=== PATIENT | female | born 1945 | race Caucasian/White ===

== ENCOUNTER 2024-07-15 07:46 | Emergency (ER) | payer OTHER, SELFPAY ==
[2024-07-15 07:49] VITALS: BP 147/71
[2024-07-15 08:07] VITALS: BMI 40.5
[2024-07-15 08:50] LABS: Glucose - Point of Care 139 mg/dl (70-99)
--- NOTE | 2024-07-15 09:12 | ED.GENMED ---
History of Present Illness
<Kourtney Quezada PA-C - Last Filed: 07/15/24 17:02>
General
Chief Complaint: Allergic Reaction
Source: patient
Exam Limitations: none
Time Seen by Provider: 07/15/24 08:10
Nursing documentation reviewed up to this point in time: agreed with
History of Present Illness
History of Present Illness:
79 y/o F with h/o COPD, NIDDM(no meds), sleep apnea, anxiety
here with feelings of facial swelling, gum swelling, hoarseness to her voice/throat feeling 'funny' since yesterday evening around 5:00.
Patient says 3 days ago she saw an ENT because she was having symptoms of congestion and cough that she thought were related to her asthma or COPD. She has been on Breo for years but he changed her to breztri
she used it on 07/13 in the morning and in the evening and while she was at dinner she started feeling that her gums were irritated and swollen. yesterday she said the symptoms were mild but present
today sh woke up feeling her face was swollen
pt says she really didn't sleep all night
she has not felt any signiicantly worse today but she was worried
she has never been told she had angioedema
pt is not on BP meds
no fever, chst pain, shortenss of breath
Past History
<Kourtney Quezada PA-C - Last Filed: 07/15/24 17:02>
Past History
ED Past Medical History: COPD and NIDDM
Social History
Tobacco: Non-smoker
Alcohol: None
Review of Systems
<Kourtney Quezada PA-C - Last Filed: 07/15/24 17:02>
Review of Systems
Allergies reviewed?: Yes
All Other Systems: Not applicable
Phy Exam
<Kourtney Quezada PA-C - Last Filed: 07/15/24 17:02>
Physical Exam
Physical Exam:
GENERAL: Alert , in no apparent distress
HEAD: NCAT
face: do not appreciate any facial swelling that is noticeable; pt points to her cheeks but it does not look swllen objectively
EYE: pupils equal and reactive, no nystagmus, no photophobia
NECK: Supple,full rom, nontender
ENT: o/p clr, mmm.
pharynx mildly injected; no vesicles
no thrush
mild hoarseness voice
able to swallow normally
no uvular edema
no gingival hypertrophy apprciated
CARDIAC: Regular rate and rhythm . no edema
LUNGS: Clear breath sounds bilaterally, no acute respiratory distress, no wheezes/rales/rhonchi
ABDOMEN: Soft, without focal tenderness, no r/g, no cvat
NEUROLOGICAL: Alert and orientedx 4, cn intact, no facial asymmetry, 5/5 strength in UE/LE, sensation intact, romberg neg, ambulates without assistance, neg pronator drift
SKIN: Warm and dry, skin intact.
MUSCULOSKELETAL: No edema, well perfused.
PSYCH: Normal and appropriate interaction.
Course
<Kourtney Quezada PA-C - Last Filed: 07/15/24 17:02>
Orders/Labs/Results
Orders:
Orders
07/15/24 08:41
Bedside Glucose- Treatment ONCE
07/15/24 08:48
Albuterol Nebs [Ventolin Nebules] 2.5 mg INH R NOW STA
Dexamethasone Sod Phosphate [Decadron] 10 mg IV NOW STA
Diphenhydramine [Benadryl] 25 mg IV NOW STA
07/15/24 08:49
CR Chest - 2 Views Urgent
Comment:
Reason For Exam: cough
07/15/24 11:16
Neck Soft Tissue [CR Soft Tissue Neck ] Urgent
Comment:
Reason For Exam: throat sensation
Abnormal Lab Results
07/15/24
08:47
POC Glucose 139 H mg/dl
(70-99)
Vital Signs
Initial and Last Documented VS:
Initial Vital Signs
Temp Pulse Resp BP Pulse Ox
36.8 C 81 16 147/71 98
07/15/24 07:49 07/15/24 07:49 07/15/24 07:49 07/15/24 07:49 07/15/24 07:49
Last Documented Vital Signs
Temp Pulse Resp BP Pulse Ox
36.8 C 81 16 153/58 98
07/15/24 07:49 07/15/24 07:49 07/15/24 07:49 07/15/24 11:02 07/15/24 11:15
<Fei Porras MD - Last Filed: 07/15/24 12:11>
Orders/Labs/Results
Orders:
Orders
07/15/24 08:41
Bedside Glucose- Treatment ONCE
07/15/24 08:48
Albuterol Nebs [Ventolin Nebules] 2.5 mg INH R NOW STA
Dexamethasone Sod Phosphate [Decadron] 10 mg IV NOW STA
Diphenhydramine [Benadryl] 25 mg IV NOW STA
07/15/24 08:49
CR Chest - 2 Views Urgent
Comment:
Reason For Exam: cough
07/15/24 11:16
Neck Soft Tissue [CR Soft Tissue Neck ] Urgent
Comment:
Reason For Exam: throat sensation
Abnormal Lab Results
07/15/24
08:47
POC Glucose 139 H mg/dl
(70-99)
Vital Signs
Initial and Last Documented VS:
Initial Vital Signs
Temp Pulse Resp BP Pulse Ox
36.8 C 81 16 147/71 98
07/15/24 07:49 07/15/24 07:49 07/15/24 07:49 07/15/24 07:49 07/15/24 07:49
Last Documented Vital Signs
Temp Pulse Resp BP Pulse Ox
36.8 C 81 16 153/58 98
07/15/24 07:49 07/15/24 07:49 07/15/24 07:49 07/15/24 11:02 07/15/24 11:15
<Kourtney Quezada PA-C - Last Filed: 07/15/24 17:02>
MDM/Problems Addressed
Differential Diagnosis Includes:
pharyngitis/URI, thrush, allergic reaction, less likely angioedema
MDM/Problems Addressed:
79 y/o F
used new inhaler2 days ago and developed symptoms of feeling gingival swelling/irritation, sore throat, scrachiness in her throat, slightly hoarse voice
and today thinks her face is swollen
no wheezing but has had cough x 3 weeks related to her COPD
no rash
no lip swelling/eye swelling
feels a bit nervous
pt appears well
on exam her pharynx is injected, no signs of thrush, but she does have some mild hoarseness ot her voice
tolerating secretions
aferile
lungs clear but pt feels like she needs treatment
given iv steroids and benadryl, cxr clear indep reviewed
feels better after meds
pt seen by ed attending
agrees with dipso pending XR soft tissue neck which was neg, indep reviewed
continue steorids for 4 days
benadryl
d/c the breztri
considered thrush but unlikely
<Kourtney Quezada PA-C - Last Filed: 07/15/24 17:02>
*Critical Care Note
Total Time (30-74mins, 75-104mins- exclusive of procedures): Not Applicable
ED Attending Note
<Kourtney Quezada PA-C - Last Filed: 07/15/24 17:02>
-
Portions of this chart may have been created with voice recognition software.� Occasional wrong word or��sound alike� substitutions may have occurred due to the inherent limitations of voice recognition software.
<Fei Porras MD - Last Filed: 07/15/24 12:11>
ED Attending Note
Patient seen and examined by attending physician: Yes
I performed the substantive portion of visit, reviewed & personally made and approve the management plan that is documented in note by myself or KATIE.: Yes
ED Attending Note:
79-year-old female started a new inhaler for her COPD 2 days ago. Last evening she developed some pain in her gums and feel like she had bilateral facial swelling. I difficulty drinking her coffee this morning. The symptoms have mostly improved.
She denies sore throat trouble breathing currently although does complain of some hoarseness.
On exam patient is nontoxic in no distress. She is not drooling she is not stridorous. She is slightly hoarse voice. No marbled speech. No trismus. She has some mild posterior soft palate and uvula erythema. No exudate. No asymmetrical
swelling. Lungs are clear and equal. Warm and dry. Perfusing well. Gums appear normal. No ulcerations. No abscess.
Impression mild posterior uvula soft palate erythema. Possibly viral. Feel its unlikely to be from the medication however chronologically there is a possible association. Will treat with steroids and follow-up.
Discharge Plan
Departure
Patient Disposition: Home (Routine Discharge)
Date of Disposition: 07/15/24
Time of Disposition: 12:06
Patient with high blood pressure during this ER visit?: Yes
Discharge Problem:
Allergic reaction
Instructions: Adverse Drug Reactions, Adult (DC)
Prescriptions:
New
prednisone 20 mg tablet
40 mg PO DAILY Qty: 8 0RF
epinephrine [EpiPen 2-Juan] 0.3 mg/0.3 mL auto-injector
0.3 ml IM ONCE PRN (Reason: anaphylaxis) Qty: 2 0RF
Referrals:
Jhony García MD [Family Provider, Internal Medicine] - Follow up in 2-3 days
Activity Restrictions/Additional Instructions:
STOP THE BREZTRI
RESTART YOUR BREO
TAKE PREDNISONE 40 mg ONCE A DAY FOR 4 DAYS STARTING TOMORROW
BENADRYL 50 MG EVERY 6 HOURS FOR 2 DAYS THEN ONLY NEEDED
RINSE YOUR MOUTH OUT WITH WARM SALT WATER AFTER EATING AND USING YOUR INHALER
RETURN FOR ANY CONCERNS: WORSE TROUBLE BREATHING/SWALLOWING, SHORTNESS OF BREATH, RASH, ETC
IF YOU SUDDENLY FEEL SIGNIFICANTLY WORSE (FACIAL SWELLING, THROAT SWELLING, TROUBLE SWALLOWING) THEN USE THE EPI PEN IN YOUR THIGH AND [id number].
Interventions
Interventions:
*Risk Screen - Suicide Last Done: 07/15/24 07:49
*General Assessment Last Done: 07/15/24 08:07
*Neglect/Abuse Screening Last Done: 07/15/24 07:49
*ED- Fall Risk Assessment Last Done: 07/15/24 08:07
*ED COVID-19 Vaccine History Last Done: 07/15/24 08:07
*Nursing Disposition Last Done: 07/15/24 13:28
ED- Cardiac Assessment Last Done: 07/15/24 08:14
ED- Pulmonary Assessment Last Done: 07/15/24 08:14
ED-Skin Assessment Last Done: 07/15/24 08:14
Discharge Date and Time
Discharge Date/Time: 07/15/24 13:28
Print Language: URDU
[2024-07-15] MEDS: DECADRON 10 MG IV (09:32)
[2024-07-15] MEDS: BENADRYL 25 MG IV (09:33)
[2024-07-15] MEDS: VENTOLIN NEBULES 2.5 MG INH (09:33)
[2024-07-15 09:36] VITALS: BP 137/49
[2024-07-15 10:00] VITALS: BP 148/59
[2024-07-15 11:02] VITALS: BP 153/58
== END 2024-07-15 13:28 | disposition home or self-care (01) ==
LOC: EMR 07:46
PROVIDERS: EMERGENCY PHYSICIAN Emergency Medicine; FAMILY PHYSICIAN Internal Medicine
DX: T78.40XA Allergy, unspecified, initial encounter (principal); Y92.9 Unspecified place or not applicable; J44.9 Chronic obstructive pulmonary disease, unspecified; E11.9 Type 2 diabetes mellitus without complications; G47.30 Sleep apnea, unspecified; F41.9 Anxiety disorder, unspecified
CPT/HCPCS: 99283; 94640; 96374; 96375; 70360; 71046; 82962

== ENCOUNTER 2024-11-19 07:45 | Inpatient (IN) | payer OTHER, SELFPAY ==
[2024-11-18 10:23] VITALS: BP 132/82
[2024-11-18 11:07] VITALS: BMI 37.1
[2024-11-18] MEDS: DELTASONE 50 MG PO (12:05)
[2024-11-18] MEDS: DUONEB 3 ML INH ×2 (12:05→19:45)
--- NOTE | 2024-11-18 12:16 | ED.GENMED ---
History of Present Illness
General
Chief Complaint: Cough
Source: patient
Time Seen by Provider: 11/18/24 11:46
History of Present Illness
History of Present Illness:
79-year-old female with past medical history of asthma/COPD and jyl-smsiwxw-[id number] diabetes presenting to the emergency department for evaluation of worsening cough and wheezing over the last 2 weeks which she believes is related to an upper
respiratory infection, primary care prescribed her prednisone on Tuesday which patient has been taking but without any relief of symptoms. She has an albuterol inhaler at home and has been using this sporadically but also without much relief. No
fevers, chills, rigors, no known sick contacts, recent travel and has not been on antibiotics. She denies being hospitalized anytime recently for asthma or COPD. Social history noncontributory.
Past History
Past History
ED Past Medical History: Asthma, COPD and NIDDM
ED Past Surgical History: None
Social History
Tobacco: Non-smoker
Alcohol: None
Drug: None
Personal:
Living: alone
Review of Systems
Review of Systems
All Other Systems: ROS reviewed and negative except as documented in HPI and ROS
Phy Exam
Physical Exam
Physical Exam:
GENERAL: Alert , in no apparent distress
HEAD: Normocephalic atraumatic
EYE: conjunctiva clear
NECK: Supple
ENT: o/p clr, mmm.
CARDIAC: Regular rate and rhythm
LUNGS: Diffuse inspiratory and expiratory wheezing, coughing throughout the exam, no rales/no ronchi
NEUROLOGICAL: Alert and oriented
SKIN: Warm and dry, skin intact.
MUSCULOSKELETAL: well perfused.
PSYCH: Normal and appropriate interaction.
Scores
Heart Failure Risk
Heart Failure Risk Score: Not Applicable
Heart Score for Chest Pain Patients
STEMI patient?: Not applicable
Withdrawal Assessment of Alcohol
Withdrawal Assessment Completed?: Not applicable
Course
Orders/Labs/Results
Orders:
Orders
11/18/24 10:27
Chest [CR Chest - 2 Views ] Urgent
Comment:
Reason For Exam: cough
11/18/24 12:00
Ipratropium/Albuterol Sulfate [Duoneb] 3 ml INH R NOW ONE
Prednisone [Deltasone] 50 mg PO NOW STA
11/18/24 13:56
Albuterol Sulfate [Ventolin Nebules] 10 mg INH R NOW STA
11/18/24 14:31
Complete Blood Count/With Diff Urgent
11/18/24 Dinner
Cholesterol Lowering
At Your Request: Full Participation
Does patient need a safe tray?: No
Cholesterol Lowering: Sodium, 2 Gram
1600 rae/13 CHO Diabetic
11/18/24 15:14
Azithromycin [Zithromax] 500 mg PO NOW STA
CefTRIAXone [Rocephin] 1,000 mg IV NOW STA
Magnesium Sulfate 2 Gram/50 ml [Magnesium Sulfate] 2 gram in 50 ml IV NOW
11/18/24 15:23
Basic Metabolic Panel Urgent
Magnesium Urgent
11/18/24 17:01
Admit/Transfer Patient As Directed
Co-Sign Provider:
Level of Care: Observation services
Assign to:: Medical/Surgical
Physician / Group: Dr Freeman
Diagnosis: Asthma exacerbation
PRN Pain Medication Management As Directed
May give lesser potent ordered pain med per pt: Yes
preference::
Protocol:: Medication orders for pain may be administered in a
manner that supports deferring to patient preference
when the pt is:
- Requesting an ordered lesser potent pain medication.
Least to most potent pain medications are defined
as: acetaminophen < NSAID < tramadol < opioids
(morphine, oxycodone, hydromorphone).
- Requesting a lesser dose of the same medication IF
ORDERED.
- Requesting a less intrusive route of administration
if both routes are prescribed by the provider (PO <
IV).
11/18/24 17:02
Code Status As Directed
Resuscitation Status: Full Code
11/18/24 17:05
Rx Pep / Acapela [RESP] Routine
11/18/24 17:11
Dextrose 50%-Water [Dextrose 50% Syringe] 12.5 grams IV [id number] PRN
Glucagon [GlucaGen] 1 mg IM PRN PRN
Bedside Glucose Monitoring As Directed
Frequency: AC&HS
Additional Instructions:: Change to q6h if pt on TPN, tube feeding or not eating
11/18/24 18:00
Dexamethasone Sod Phosphate [Decadron] 4 mg IV Q6H
Pantoprazole [Protonix] 40 mg PO QPM
Rosuvastatin Calcium [Crestor] 40 mg PO QPM
11/18/24 18:13
Bisacodyl [Dulcolax] 10 mg RECTAL [id number] PRN
Docusate W/Senna [Senokot-S] 1 tablet PO BIDPRN PRN
Enoxaparin Sodium [Lovenox] 40 mg SC QPM
Polyethylene Glycol Powder [Miralax] 17 grams PO DAILYPRN PRN
11/18/24 18:13
Activity As Directed
Activity Level: Out of Bed-Early Mobility
Vital Signs As Directed
Frequency: Per unit guidelines
DX Deep Vein Thrombosis Video Routine
11/18/24 18:44
COVID-19 Antigen Routine
Source: Nasal Swab
Influenza A+B Rapid Molecular Routine
NICK Source: Nasal Swab
Specimen Description:
11/18/24 19:13
RSV [Respiratory Syncytial Virus] Routine
NICK Source: Nasal Swab
Specimen Description:
Date Specimen was Collected: 11/18/24
Time Specimen was Collected: 19:05
11/18/24 20:00
Budesonide [Pulmicort] 0.25 mg INH R BID
Guaifenesin [Mucinex] 600 mg PO Q12
Ipratropium/Albuterol Sulfate [Duoneb] 3 ml INH R QID
11/18/24 21:45
Insulin Aspart Pen [Novolog Flexpen] 4 units SC NOW STA
11/18/24 22:00
Clonazepam [Klonopin] 0.5 mg PO HS
Escitalopram Oxalate [Lexapro] 20 mg PO HS
11/19/24 06:48
Consult Pulmonary [PULMONARY CONSULT] Routine
Consulting Provider: Yessi Lopez
Was physician already notified: Yes
Reason for consult: Asthma
11/19/24 07:30
Insulin Aspart Corrective Low [Novolog Flexpen-Low Resistance] See Protocol SC AC
11/19/24 08:20
Basic Metabolic Panel IN AM
Complete Blood Count/With Diff IN AM
Glycohemoglobin (HgbA1c) IN AM
Abnormal Lab Results
11/18/24 11/18/24 11/18/24
14:31 15:23 21:03
WBC 17.5 H 10^3/uL
(4.8-10.8)
Hgb 11.8 L g/dL
(12.0-16.0)
MCV 77.7 L fL
(81.0-99.0)
MCH 23.7 L pg
(27.0-31.0)
MCHC 30.6 L g/dL
(33.0-37.0)
RDW 16.9 H %
(11.5-14.5)
MPV 10.8 H fL
(7.4-10.4)
Abs Immat Gran (auto) 0.1 H 10^3/uL
(0-0.05)
Absolute Neuts (auto) 14.4 H 10^3/uL
(1.4-6.5)
Immature Gran % 0.6 H %
(0-0.5)
Neutrophils % 82.2 H %
(42.2-75.2)
Lymphocytes % 13.0 L %
(20.5-51.1)
Sodium 134 L mmol/L
(135-145)
BUN 21 H mg/dl
(7-17)
Glucose 178 H mg/dl
(70-99)
POC Glucose 317 H mg/dl
(70-99)
11/19/24
00:52
WBC
Hgb
MCV
MCH
MCHC
RDW
MPV
Abs Immat Gran (auto)
Absolute Neuts (auto)
Immature Gran %
Neutrophils %
Lymphocytes %
Sodium
BUN
Glucose
POC Glucose 225 H mg/dl
(70-99)
11/18/24 14:31
11/18/24 15:23
Vital Signs
Initial and Last Documented VS:
Initial Vital Signs
Temp Pulse Resp BP Pulse Ox
98.4 F 81 18 132/82 95
11/18/24 10:23 11/18/24 10:23 11/18/24 10:23 11/18/24 10:23 11/18/24 10:23
Last Documented Vital Signs
Temp Pulse Resp BP Pulse Ox
97.9 F 72 14 175/78 97
11/20/24 07:00 11/20/24 11:06 11/20/24 11:06 11/20/24 08:48 11/20/24 11:06
MDM/Problems Addressed
Differential Diagnosis Includes:
Asthma/COPD exacerbation
COVID
Flu
Pneumonia
Bronchitis
PE
MDM/Problems Addressed:
79-year-old female presenting to the ER for evaluation of left shoulder cough that has been ongoing for 2 weeks, worsening wheezing and difficulty breathing over the last week. Primary care provider prescribed prednisone which patient has been
using without any relief. No fever/chills or rigors. Exam here reveals significant inspiratory and expiratory wheezing. Will treat with DuoNeb and prednisone here, chest x-ray ordered. Disposition pending.
Chronic conditions affecting care: COPD and Asthma
Acute Exacerbation and/or Progression of Chronic Illness: COPD and Asthma
*Radiology
Radiology exam reviewed: preliminary read by ED provider (normal CXR)
*Pulse Oximetry
SaO2: 95
Oxygen Mode of Delivery: Room air
Patient hypoxic: no
*Critical Care Note
Total Time (30-74mins, 75-104mins- exclusive of procedures): Not Applicable
Patient Management
Discussion with other providers: Hospitalist
Escalation/DeEscalation of care consider admission/obs:
Despite duoneb and hour long nebulizer treatment in addition to steroids, patient continues with cough and wheezing on exam. Her O2 remains WNL. CXR shows no obvious pneumonia but will cover for CAP/atypical pneumonia with Rocephin/Zithromax.
Hospitalist team notified and accepts for continued evaluation and treatment
ED Attending Note
-
Portions of this chart may have been created with voice recognition software.� Occasional wrong word or��sound alike� substitutions may have occurred due to the inherent limitations of voice recognition software.
Discharge Plan
Departure
Patient Disposition: Admit
Date of Disposition: 11/18/24
Time of Disposition: 15:21
Presentation/result/management discussed w/ accepting MD/DO: Hospitalist
Discharge Problem:
Asthma with acute exacerbation, Bronchitis
Interventions
Interventions:
*Risk Screen - Suicide Last Done: 11/18/24 10:23
*General Assessment Last Done: 11/18/24 10:23
*Neglect/Abuse Screening Last Done: 11/18/24 11:08
*ED- Fall Risk Assessment Last Done: 11/18/24 11:05
*ED COVID-19 Vaccine History Last Done: 11/18/24 11:05
*ED Influenza Vaccine History Last Done: 11/18/24 11:05
*Nursing Disposition Last Done: 11/18/24 18:17
ED- Pulmonary Assessment Last Done: 11/18/24 11:05
Discharge Date and Time
Discharge Date/Time: 11/18/24 18:18
[2024-11-18 13:33] VITALS: BP 153/45
[2024-11-18] MEDS: VENTOLIN NEBULES 10 MG INH (14:36)
[2024-11-18 14:40] LABS: Hematocrit 38.6 % (37.0-47.0); Hemoglobin 11.8 g/dL (12.0-16.0); Mean Corp Hgb Conc. 30.6 g/dL (33.0-37.0); Mean Corpuscular Volume 77.7 fL (81.0-99.0); Nucleated Red Blood Cells % 0 %; Platelet Count 309 10^3/uL (130-400); Red Cell Dist. Width 16.9 % (11.5-14.5)
[2024-11-18] MEDS: MAGNESIUM SULFATE 50 IV (15:23)
[2024-11-18] MEDS: ZITHROMAX 500 MG PO (15:24)
[2024-11-18] MEDS: ROCEPHIN 1000 MG IV (15:24)
[2024-11-18 16:07] LABS: Blood Urea Nitrogen 21 mg/dl (7-17); Calcium 8.7 mg/dl (8.4-10.2); Carbon Dioxide 25 mmol/L (22-30); Chloride 103 mmol/L (98-107); Estimated Creatinine Clearance 74 ml/min; Glucose 178 mg/dl (70-99); Magnesium 1.9 mg/dl (1.6-2.3); Potassium 4.2 mmol/L (3.5-5.1); Sodium 134 mmol/L (135-145); eGFR > 60.00
--- NOTE | 2024-11-18 17:06 | HPS.HSE ---
Family Physician
-
Family Physician: Jhony García
Chief Complaint
-
Cough
History of Present Illness
Patient 79 years old female with history of asthma, hyperlipidemia, depression and anxiety, GERD, obesity, came into the hospital with worsening cough and wheezing. Patient tells me that she has been having URI symptoms for about 2 weeks described
as runny nose, dry cough, postnasal drip, and wheezing. She denies fevers or chills. She saw her primary care who prescribed a course of steroids and antibiotics and she has some nebulizer with levalbuterol at home that she has been using over the
last 2 days without significant improvement. She has some shortness of breath and chest discomfort related to the cough. No leg pain or leg swelling. In terms of sick contact, patient's daughter and granddaughter has a viral URI going on over the
last several weeks as well. In the ED, pulse ox 95% on room air, she was given oral steroid, breathing treatment, IV magnesium, and antibiotics of IV Rocephin and azithromycin and she has persistent wheezing she was referred to hospital service for
further evaluation.
Medical History
Past Medical History
Past Medical History: Reports Other (Asthma, hyperlipidemia, depression and anxiety, GERD, obesity)
Past Surgical History: Reports None
Social History
Tobacco: Non-smoker
Alcohol: None
Drug: None
Family History
Family History: Not pertinent
Allergies / Home Medications
Allergies reflects when Allergies were last updated in [employer].
Home Medications with original date entered in [employer]
Allergy/Medication List:
Allergies
Allergy/AdvReac Type Severity Reaction Status Date / Time
Penicillins Allergy Unknown Unknown Verified 11/18/24 10:24
Sulfa (Sulfonamide Allergy Unknown Unknown Verified 11/18/24 10:24
Antibiotics)
Home Medications
clonazepam 0.5 mg tablet 0.5 mg PO HS 11/18/24
escitalopram oxalate 20 mg tablet (Lexapro) 20 mg PO HS 11/18/24
fluticasone fur. 100 mcg-umeclid 62.5 mcg-vilant 25 mcg inhalat.powder (Trelegy Ellipta) 1 inh inhalation R QPM 11/18/24
levalbuterol HCl 0.63 mg/3 mL solution for nebulization 0.63 mg inhalation R Q8HPRN PRN sob 11/18/24
omeprazole 40 mg capsule,delayed release 40 mg PO QPM 11/18/24
prednisone 5 mg tablet 5 mg PO DIRECTED 11/18/24
rosuvastatin 40 mg tablet (Crestor) 40 mg PO HS 11/18/24
Review of Systems
-
A 12 point ROS was completed and negative except as noted: Yes
Physical Exam
Vital Signs
Vital Signs
Temp Pulse Resp BP Pulse Ox
98.4 F 95 39 153/45 95
11/18/24 10:23 11/18/24 16:15 11/18/24 16:15 11/18/24 13:33 11/18/24 16:15
Physical exam:
General: Acutely ill
HEENT: Normocephalic, Atraumatic and Moist Mucous Membranes
Respiratory: Bilateral wheezes throughout both rodriguez, no crackles or rhonchi.
Cardiac: Regular Rhythm and S1/S2
GI: Soft, Nontender and Nondistended
Musculoskeletal: No Clubbing, No Cyanosis and No Edema
Neuro: Awake, Alert and Oriented, no neurological deficits
Psych: Calm
Physical Exam
General: Other
Laboratory Results
-
11/18/24 14:31
11/18/24 15:23
Data Reviewed
-
Diagnostic Radiology: Image Personally Visualized and interpreted
Lab Data: Labs Reviewed by me
Impression/Plan
-
IMPRESSION:
Patient 79 years old female who came into the hospital with persistent URI and asthma exacerbation. She will need to be observed in the hospital and treated accordingly.
PLAN:
Acute asthma exacerbation:
Likely exacerbated by viral URI
Check influenza COVID-19, and RSV.
Start IV steroids, dexamethasone 4 mg every 6 hours
DuoNebs 4 times daily
Acapella
Mucinex 600 mg twice a day
Pulmicort inhalers twice a day
Seen chest x-ray and no signs of pneumonia
Monitor respiratory status closely
Leukocytosis:
Likely related to steroid use
No signs of infection
Given antibiotics in the ED but will not continue since no evidence of bacterial infection
Seen chest x-ray and no signs of pneumonia
Hyperglycemia:
Likely related to steroids-she denies history of diabetes mellitus.
Will keep on insulin sliding scale for now since she will benefit regardless of diabetes or not (latest blood sugar 178) and will check hemoglobin A1c in a.m.
Hyperlipidemia:
Continue rosuvastatin 40 mg p.o. every night
GERD:
Continue PPI
Depression anxiety:
Continue Lexapro 30 mg every night
Continue clonazepam 0.5 mg every night
Anemia with microcytic index:
Mild and no signs of bleeding
Continue to monitor
Hyponatremia:
Mild
Trend in a.m.
DVT prophylaxis:
Lovenox SQ
CODE STATUS:
Full code
Time spent 75 minutes
[2024-11-18] MEDS: LOVENOX 40 MG SC (18:33)
[2024-11-18] MEDS: PROTONIX 40 MG PO (18:33)
[2024-11-18] MEDS: DECADRON 4 MG IV ×2 (18:33→23:07)
[2024-11-18] MEDS: CRESTOR 40 MG PO (18:35)
[2024-11-18 19:21] LABS: COVID-19 Antigen Negative (Negative)
[2024-11-18] MEDS: PULMICORT 0.25 MG INH (19:45)
--- NOTE | 2024-11-18 20:11 | PTCARENOTE ---
Patient received in bed upon changed of shift. No signs of distress or discomfort. RSV, COVID, and Flu swabs all negative. Oriented to unit. Call sharp within reach.
[2024-11-18] MEDS: MUCINEX 600 MG PO (20:57)
[2024-11-18] MEDS: KLONOPIN 0.5 MG PO (21:00)
[2024-11-18] MEDS: LEXAPRO 20 MG PO (21:00)
[2024-11-18 21:05] LABS: Glucose - Point of Care 317 mg/dl (70-99)
[2024-11-18] MEDS: NOVOLOG FLEXPEN 4 UNITS SC (22:25)
[2024-11-18 22:51] VITALS: BP 180/69
[2024-11-18 23:04] VITALS: BP 132/60
[2024-11-19 00:53] LABS: Glucose - Point of Care 225 mg/dl (70-99)
[2024-11-19] MEDS: DECADRON 4 MG IV ×4 (05:00→23:25)
[2024-11-19 07:00] VITALS: BP 144/77
[2024-11-19] MEDS: MUCINEX 600 MG PO ×2 (07:30→21:51)
[2024-11-19] MEDS: PULMICORT 0.25 MG INH ×2 (07:36→19:26)
[2024-11-19] MEDS: DUONEB 3 ML INH ×4 (07:36→19:26)
[2024-11-19 08:04] LABS: Glucose - Point of Care 191 mg/dl (70-99)
[2024-11-19 08:50] LABS: Hematocrit 38.3 % (37.0-47.0); Hemoglobin 12.2 g/dL (12.0-16.0); Mean Corp Hgb Conc. 31.9 g/dL (33.0-37.0); Mean Corpuscular Volume 75.0 fL (81.0-99.0); Nucleated Red Blood Cells % 0 %; Platelet Count 345 10^3/uL (130-400); Red Cell Dist. Width 16.8 % (11.5-14.5)
[2024-11-19] MEDS: NOVOLOG FLEXPEN-LOW RESISTANCE 1 UNITS SC (09:07)
[2024-11-19 09:31] LABS: Blood Urea Nitrogen 22 mg/dl (7-17); Calcium 9.0 mg/dl (8.4-10.2); Carbon Dioxide 24 mmol/L (22-30); Chloride 103 mmol/L (98-107); Estimated Creatinine Clearance 74 ml/min; Glucose 196 mg/dl (70-99); Potassium 4.9 mmol/L (3.5-5.1); Sodium 134 mmol/L (135-145); eGFR > 60.00
[2024-11-19 09:36] LABS: Glycohemoglobin (HgbA1c) 7.8 % (4.0-5.6)
--- NOTE | 2024-11-19 09:51 | CON.PUL ---
Consultation
Consultation Request
Date/Time Consultation Requested: 11/19/2024-8 AM
Date/Time Consultation Performed: 11/19/2024-8:30 AM
Requesting Provider: Hospitalist
Performing Provider: Dr. Dennis
Reason for Consultation: Shortness of breath/wheezing
Medical History
-
Chief Complaint: Shortness of breath
History of Present Illness:
79-year-old non-smoking female with a history of hypertension, hyperlipidemia, depression, anxiety, GERD, obesity as well as asthma who presented with wheezing and cough noted to have asthma exacerbation-pulmonary consulted for asthma exacerbation
11/19/2024. Patient states that she has had progressive shortness of breath, chest tightness, wheezing, productive cough, chest congestion, mucus, but denied any chest pain, pleurisy, abdominal pain, nausea, focal weakness or leg swelling.
Past Medical History
Past Medical History: None (Asthma. Hyperlipidemia. Depression. Anxiety. GERD. Obesity.)
Social History
Tobacco: Non-smoker
Alcohol: None
Drug: None
Occupational Exposures: No known asbestos exposure
Environmental Exposures: No known tuberculosis exposure
Family History
Family History: Reviewed & Not Pertinent
Allergies / Home Medications
Allergies
Allergy/AdvReac Type Severity Reaction Status Date / Time
Penicillins Allergy Unknown Unknown Verified 11/18/24 10:24
Sulfa (Sulfonamide Allergy Unknown Unknown Verified 11/18/24 10:24
Antibiotics)
Home Medications
�Medication �Instructions �Recorded �Confirmed �Last Taken �Type
clonazepam 0.5 mg tablet 0.5 mg PO HS Mental Health/Anxiety 11/18/24 11/18/24 11/17/24 History
escitalopram oxalate 20 mg tablet 20 mg PO HS Depression 11/18/24 11/18/24 11/17/24 History
(Lexapro)
fluticasone fur. 100 mcg-umeclid 1 inh inhalation R QPM 11/18/24 11/18/24 11/17/24 History
62.5 mcg-vilant 25 mcg Lung/Breathing Issues
inhalat.powder (Trelegy Ellipta)
levalbuterol HCl 0.63 mg/3 mL 0.63 mg inhalation R Q8HPRN PRN sob 11/18/24 11/18/24 Unknown History
solution for nebulization
omeprazole 40 mg capsule,delayed 40 mg PO QPM Gastrointestinal Issue 11/18/24 11/18/24 11/17/24 History
release
prednisone 5 mg tablet 5 mg PO DIRECTED 11/18/24 11/18/24 11/17/24 History
Anti-Inflammatory
rosuvastatin 40 mg tablet (Crestor) 40 mg PO HS High Cholesterol 11/18/24 11/18/24 11/17/24 History
Review of Systems
-
Unable to Obtain full review of systems at this time due to: Other ( per HPI)
Vitals / Labs / Diagnostic Testing
Vital Signs
Temp Pulse Resp BP Pulse Ox
98.0 F 90 18 144/77 97
11/19/24 07:00 11/19/24 07:41 11/19/24 07:41 11/19/24 07:00 11/19/24 07:41
Lab Data
11/19/24 08:20
11/19/24 08:20
Microbiology
11/18/24 19:13 Nasal Swab Respiratory Syncytial Virus Ag - Final
Negative for Respiratory Syncytial Virus.
A false negative result may be obtained with a specimen
collected early in the acute phase. If symptoms persist, a
new specimen should be tested.
11/18/24 18:44 Nasal Swab Influenza Types A & B (ZIGGY) - Final
Negative for Influenza A & B, NAAT
Negative results must be combined with clinical observations
and patient history.
Nucleic Acid Amplification test (NAAT)performed on the
[employer] platform.
Diagnostic Testing:
Physical Exam
-
Exam:
well-nourished and well-developed in no apparent distress
HEENT-atraumatic, normocephalic
Neck-supple, no JVD, no bruit
Heart-regular rate and rhythm-no murmurs, rubs or gallops
Chest with diminished breath sounds, prolonged expiratory time, tight wheezing on expiration, no crackles
Back without tenderness
Abdomen-soft, nontender, nondistended, no hepatosplenomegaly
Extremities-no cyanosis, clubbing, edema and good peripheral pulses
Integument-intact, no rashes, lesions or ecchymosis
Neurology-alert and oriented, nonfocal motor and sensory exam
Assessment
-
79-year-old non-smoking female with a history of hypertension, hyperlipidemia, depression, anxiety, GERD, obesity as well as asthma who presented with wheezing and cough unresponsive to outpatient prednisone and Xopenex noted to have asthma
exacerbation-pulmonary consulted for asthma exacerbation 11/19/2024
Asthma-moderate persistent with acute exacerbation
Leukocytosis
Hyperglycemia-elevated A1c 7.8%
Leukocytosis
Mild hyponatremia
Conditions present prior to admission:
Asthma.
Hyperlipidemia.
Depression.
Anxiety.
GERD.
Obesity.
Plan
Respiratory decompensation due to underlying asthma with acute exacerbation
Supplemental oxygen if needed
Incentive spirometry
DuoNebs and Pulmicort
Decadron 4 mg IV every 6 hours
Mucolytic's
Antitussives if needed
Sputum culture if able to produce
Observe off antibiotics
Monitor leukocytosis
Consider procalcitonin if considering antibiotics
Follow blood sugar
Insulin supplementation as needed-note A1c elevation
DVT prophylaxis-on Lovenox
GI prophylaxis-on pantoprazole
Nutrition
Early mobilization
Outpatient pulmonary follow-up
Diagnostic data:
Chest x-ray 07/15/2024-NAD
Chest x-ray 11/18/2024-NAD
X-ray neck 07/15/2024-soft tissue of the neck appear intact without significant focal abnormalities
Data Reviewed
-
EKG: Report reviewed by me
Radiology: Report reviewed by me
Medical Tests (Nuc Med, Echo etc): Report reviewed by me
Labs: Labs reviewed by me
Old Records: Reviewed
Total Time Spent with Patient (in minutes): 55
--- NOTE | 2024-11-19 09:56 | W.PN.HOSP.TC ---
Today's Communication/Plan
-
f/w pulmonary recommendations
Assessment / Plan
Assessment / Plan
Physical exam:
General: Acutely ill
HEENT: Normocephalic, Atraumatic and Moist Mucous Membranes
Respiratory: Bilateral wheezes throughout both rodriguez, no crackles or rhonchi.
Cardiac: Regular Rhythm and S1/S2
GI: Soft, Nontender and Nondistended
Musculoskeletal: No Clubbing, No Cyanosis and No Edema
Neuro: Awake, Alert and Oriented, no neurological deficits
Psych: Calm
Patient 79 years old female who came into the hospital with persistent URI and asthma exacerbation. She will need to be observed in the hospital and treated accordingly.
PLAN:
Acute asthma exacerbation:
Likely exacerbated by viral URI
Negative influenza COVID-19, and RSV.
Continue with steroid therapy
No history of smoking, brief history when she was 20s
Acapella
Mucinex 600 mg twice a day
Pulmicort inhalers twice a day
Seen chest x-ray and no signs of pneumonia
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 She has scheduled to see pulmonary in [place]
In December 2024 consult pulmonary. She wanted to see our pulmonary, consulted
OMER
Not using C pap
Hyperglycemia:
Hemoglobin A1c 7.8.
BMI is 37, obesity
Counseled for healthy lifestyle, weight loss follow-up with her primary care doctor.
Hyperlipidemia:
Continue rosuvastatin 40 mg p.o. every night
GERD:
Continue PPI
Depression anxiety:
Continue Lexapro 30 mg every night
Continue clonazepam 0.5 mg every night
Anemia with microcytic index:
Mild and no signs of bleeding
Continue to monitor
Hyponatremia:
Mild
No confusion
DVT prophylaxis:
Lovenox SQ
CODE STATUS:
Full code
Total time spent to see the patient, examine the patient, review data and lab results, discuss treatment plan with patient, nursing staff around 55 minutes
Anticipated Discharge: 24 - 48 hours
Subjective/Interval History
-
Date of Service: November 19, 2024
Still cough
No sob
Objective Data
-
Labs:
Laboratory Results
11/19/24
08:20
WBC 19.7 H
Hgb 12.2
Hct 38.3
Plt Count 345
Sodium 134 L
Potassium 4.9
Chloride 103
Carbon Dioxide 24
BUN 22 H
Creatinine 0.6
Glucose 196 H
Calcium 9.0
Vital Signs:
Vital Signs
Temp Pulse Resp BP Pulse Ox
98.0 F 90 18 144/77 97
11/19/24 07:00 11/19/24 07:41 11/19/24 07:41 11/19/24 07:00 11/19/24 07:41
I&O
11/18/24 11/19/24 11/20/24
06:59 06:59 06:59
Intake Total 480 / 480
Balance 480 / 480
--- NOTE | 2024-11-19 11:01 | CM ---
Patient seen bedside, initial assessment completed. Patient 79 years old female with history of asthma, hyperlipidemia, depression and anxiety, GERD, obesity, came into the hospital with worsening cough and wheezing.
Patient resides w/ her daughter in a 2STH, 5 bedrooms. 2 or 3 steps to enter the home. Patient is independent w/ ambulation, no device required. Independent w/ ADLs and personal care. Denies SNF/HC hx. Patient has neb machine, no other DME reported.
Address, point of contact and insurance verified
PCP: Jhony García
Pharmacy: [facility]
Patient's daughter will transport at d/c
Plan: Home, no needs anticipated
[2024-11-19 12:13] LABS: Glucose - Point of Care 229 mg/dl (70-99)
[2024-11-19] MEDS: NOVOLOG FLEXPEN-LOW RESISTANCE 2 UNITS SC ×2 (12:14→17:16)
[2024-11-19 15:22] VITALS: BP 146/57
[2024-11-19 17:06] LABS: Glucose - Point of Care 226 mg/dl (70-99)
[2024-11-19] MEDS: NOVOLOG FLEXPEN 7 UNITS SC (17:16)
[2024-11-19] MEDS: CRESTOR 40 MG PO (17:24)
[2024-11-19] MEDS: LOVENOX 40 MG SC (17:24)
[2024-11-19] MEDS: PROTONIX 40 MG PO (17:24)
[2024-11-19 21:30] LABS: Glucose - Point of Care 183 mg/dl (70-99)
[2024-11-19] MEDS: KLONOPIN 0.5 MG PO (21:53)
[2024-11-19] MEDS: LANTUS 0.15 UNITS SC (21:53)
[2024-11-19] MEDS: LEXAPRO 20 MG PO (21:55)
[2024-11-19 23:17] VITALS: BP 162/72
[2024-11-20] MEDS: DECADRON 4 MG IV (06:22)
[2024-11-20 07:00] VITALS: BP 175/78
[2024-11-20] MEDS: DUONEB 3 ML INH ×4 (07:15→19:41)
[2024-11-20] MEDS: PULMICORT 0.25 MG INH ×2 (07:16→19:41)
[2024-11-20] MEDS: MUCINEX 600 MG PO ×2 (08:00→20:49)
[2024-11-20 08:15] LABS: Glucose - Point of Care 157 mg/dl (70-99)
[2024-11-20] MEDS: NORVASC 5 MG PO (08:48)
[2024-11-20] MEDS: NOVOLOG FLEXPEN 7 UNITS SC ×3 (09:02→17:27)
[2024-11-20] MEDS: NOVOLOG FLEXPEN-LOW RESISTANCE 1 UNITS SC ×2 (09:02→17:26)
[2024-11-20] MEDS: DELTASONE 40 MG PO (09:03)
--- NOTE | 2024-11-20 09:27 | PN.DE.MGMTRT ---
Insulin Management
- -
11/20/2024: Diabetes Management Consult
79 year old female with PMH: Asthma, HLD, HTN, Depression Anxiety, GERD, Obesity, came into the hospital with worsening cough and wheezing, associated with 2 weeks h/o URI symptoms described as runny nose, dry cough and postnasal drip. She saw her
primary care who prescribed a course of steroids and antibiotics without significant improvement. In the ED, she was continued on IV steroid, contributing to Hyperglycemia.
Pt awake, alert, oriented, resting in bed, offers no complaints, able to discuss diabetes care plan.
States she is on chronic steroids (Pred 5mg daily) and has been on and off high dose steroids since the summer.
She was not aware of diabetes dx and is not on any diabetes oral medications. A1C 7.8%, Cr 0.6, eGFR >60
Pt has been on IV steroids- Dexa 4 mg IV Q6 hrs, dose has been tapered down to oral pred 40mg daily
Patient was initiated on basal bolus insulin; 11/19 pre-dinner glucose was 229, received NovoLog 7 units. HS glucose was 183, received Lantus 15 units, FBG 157 POC this AM. Will make no changes to current regimen. Cont Lantus 15 units @ HS and
NovoLog 7 units AC, and low corrective with meals
Will adjust diet to 1600 rae low cholesterol. Discussed with Nurse. Will cont to follow
Pt will be seen bu the Diabetes Nurse Educator for glucose meter and insulin administration instructions.
Diabetes History
- -
Type of Diabetes: 2 requiring insulin
Pre-Admission Diabetes Regimen
11/19/24
08:20
Creatinine 0.6
Lab Results
Hemoglobin A1c 7.8 % (4.0-5.6) H 11/19/24 08:20
Insulin Pump Settings
IP Diabetes Regimen
11/19/24 11/19/24 11/19/24
08:20 12:12 17:04
Glucose 196 H
POC Glucose 229 H 226 H
11/19/24 11/20/24
21:28 08:14
Glucose
POC Glucose 183 H 157 H
Meal type: Lunch
Amount consumed: 100%
Patient Education
--- NOTE | 2024-11-20 09:49 | W.PN.PUL.V3 ---
Today's Communication / Plan
-
Change Decadron to oral prednisone.
Continue nebulizers and mucolytics.
Increase activity.
Wean oxygen
Assessment
-
79-year-old non-smoking female with a history of hypertension, hyperlipidemia, depression, anxiety, GERD, obesity as well as asthma who presented with wheezing and cough unresponsive to outpatient prednisone and Xopenex noted to have asthma
exacerbation-pulmonary consulted for asthma exacerbation 11/19/2024
Asthma-moderate persistent with acute exacerbation
Leukocytosis
Hyperglycemia-elevated A1c 7.8%
Leukocytosis
Mild hyponatremia
Conditions present prior to admission:
Asthma.
Hyperlipidemia.
Depression.
Anxiety.
GERD.
Obesity.
Plan
Respiratory decompensation due to underlying asthma with acute exacerbation
Supplemental oxygen if needed-attempt to wean
Incentive spirometry
DuoNebs and Pulmicort
Decadron 4 mg IV every 6 hours-Changed to prednisone with slow taper
Mucolytic's
Antitussives if needed
Sputum culture if able to produce
Observe off antibiotics
Monitor leukocytosis
Consider procalcitonin if considering antibiotics
Follow blood sugar
Insulin supplementation as needed-note A1c elevation
DVT prophylaxis-on Lovenox
GI prophylaxis-on pantoprazole
Nutrition
Early mobilization
Outpatient pulmonary follow-up
Diagnostic data:
Chest x-ray 07/15/2024-NAD
Chest x-ray 11/18/2024-NAD
X-ray neck 07/15/2024-soft tissue of the neck appear intact without significant focal abnormalities
6 minute walk test-09/20/24: She stopped the walk test aftter almost 3 minutes Because of fatigue. Her resting saturation was 100% and declined to 98%. Her maximum heart rate was 102 bpm with exercise and 80 bpm at rest. Her perceived dyspnea was
moderate at 3 on a 10 point dyspnea scale. She ambulated 350 feet.
Echocardiogram-07/2021: He has 60-65%.� Moderate diastolic dysfunction.� Features were consistent with a pseudo-normal LV filling pattern with concomitant abnormal relaxation and increased filling pressure.Moderate mitral regurgitation and mild to
moderate aortic insufficiency. Normal RV size and systolic function.� Estimated RV systolic pressure 29 mmHg.
Nuclear stress test-09/01/22: Stress ejection fraction 73%.� LV systolic function post stress test was normal.� Resting ejection fraction was 84%.� Fixed perfusion defect which was small with mild reduction in uptake present in the apical location
that was predominantly fixed..� No signs of ischemia.
Subjective Data
-
Date of Service:
Date of Service: November 20, 2024
Chief Complaint: Pulmonary Follow Up and Dyspnea Follow Up
Subjective:
Feels better, less short of breath, still has wheezing, dyspnea on exertion, nonproductive cough but no chest pain
Review of Systems
General: Other ( per HPI)
Objective Data
Data Reviewed
Vital Signs / I&O:
Vital Signs
Temp Pulse Resp BP Pulse Ox
97.9 F 75 18 175/78 96
11/20/24 07:00 11/20/24 08:48 11/20/24 07:21 11/20/24 08:48 11/20/24 07:21
Intake and Output
11/19/24 11/20/24 11/21/24
06:59 06:59 06:59
Intake Total 480 / 480 960 / 960
Balance 480 / 480 960 / 960
SaO2: 96
Physical Exam
General: Respiratory Distress (n) and Comfortable
HEENT: Normocephalic and Moist Mucous Membranes
Cardiovascular: Regular Rhythm
Respiratory: Wheeze ( expiratory), Rhonchi ( expiratory), Non-Labored Respirations, Accessory Resp Muscle Use (n) and Stridor (n)
GI: Soft, Non Distended and Non Tender
Neurology: Awake and No Motor Deficits
Skin: Warm, Good Color, Cyanosis (n), Jaundice (n) and Rash (n)
Labs/Micro/Reports
Lab Data
11/19/24 08:20
11/19/24 08:20
Microbiology
11/18/24 19:13 Nasal Swab Respiratory Syncytial Virus Ag - Final
Negative for Respiratory Syncytial Virus.
A false negative result may be obtained with a specimen
collected early in the acute phase. If symptoms persist, a
new specimen should be tested.
11/18/24 18:44 Nasal Swab Influenza Types A & B (ZIGGY) - Final
Negative for Influenza A & B, NAAT
Negative results must be combined with clinical observations
and patient history.
Nucleic Acid Amplification test (NAAT)performed on the
[employer] platform.
--- NOTE | 2024-11-20 09:56 | W.PN.HOSP.TC ---
Today's Communication/Plan
-
Diabetic nurse practitioner consult. Continue with current insulin
Changed to oral prednisone
Start low-dose amlodipine
Assessment / Plan
Assessment / Plan
Physical exam:
General: Acutely ill
HEENT: Normocephalic, Atraumatic and Moist Mucous Membranes
Respiratory: Bilateral wheezes throughout both rodriguez but less intense, no crackles or rhonchi.
Cardiac: Regular Rhythm and S1/S2
GI: Soft, Nontender and Nondistended
Musculoskeletal: No Clubbing, No Cyanosis and No Edema
Neuro: Awake, Alert and Oriented, no neurological deficits
Psych: Calm
Patient 79 years old female who came into the hospital with persistent URI and asthma exacerbation. She will need to be observed in the hospital and treated accordingly.
PLAN:
Acute asthma exacerbation:
Likely exacerbated by viral URI
Negative influenza COVID-19, and RSV.
Continue with steroid therapy, change to oral prednisone then taper slowly.
No history of smoking, brief history when she was 20s
Acapella
Mucinex 600 mg twice a day
Pulmicort inhalers twice a day
Seen chest x-ray and no signs of pneumonia
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 She has scheduled to see pulmonary in [place]
In December 2024 consult pulmonary. She wanted to see our pulmonary, consulted
OMER
Not using C pap
# Elevated blood pressure, suspect primary hypertension, untreated/undiagnosed
No chest pain shortness of breath. Will get baseline EKG.
Start the patient on low-dose amlodipine. Discussed with patient and her daughter
Patient was counseled to get blood pressure machine at home, document her readings and share them with the primary care doctor
Hyperglycemia:
Hemoglobin A1c 7.8. c/w undiagnosed or untreated DM. Pt reported that she was never told to check her blood sugar and does not have glucometer at home.
BMI is 37, obesity
Started on long acting Premeal insulin. Expect hyperglycemia induced by steroid
Counseled for healthy lifestyle, weight loss follow-up with her primary care doctor.
Consulted diabetic nurse practitioner
Hyperlipidemia:
Continue rosuvastatin 40 mg p.o. every night
GERD:
Continue PPI
Depression anxiety:
Continue Lexapro 30 mg every night
Continue clonazepam 0.5 mg every night
Anemia with microcytic index:
Mild and no signs of bleeding
Continue to monitor
Hyponatremia:
Mild
No confusion
DVT prophylaxis:
Lovenox SQ
CODE STATUS:
Full code
Total time spent to see the patient, examine the patient, review data and lab results, discuss treatment plan with patient, nursing staff around 55 minutes
Anticipated Discharge: 24 - 48 hours
Subjective/Interval History
-
Date of Service: November 20, 2024
No chest pain
No sob, less cough
Objective Data
-
Vital Signs:
Vital Signs
Temp Pulse Resp BP Pulse Ox
97.9 F 75 18 175/78 96
11/20/24 07:00 11/20/24 08:48 11/20/24 07:21 11/20/24 08:48 11/20/24 09:49
I&O
11/19/24 11/20/24 11/21/24
06:59 06:59 06:59
Intake Total 480 / 480 960 / 960
Balance 480 / 480 960 / 960
[2024-11-20 10:48] VITALS: PULSE 80; O2SAT 97
[2024-11-20 12:48] LABS: Glucose - Point of Care 125 mg/dl (70-99)
[2024-11-20] MEDS: NOVOLOG FLEXPEN-LOW RESISTANCE SC (12:54)
--- NOTE | 2024-11-20 15:00 | PTCARENOTE ---
Addendum entered by Ramila King RN 11/20/24 15:07:
addendum to note:
Patient states she does not drink any water throughout the day, she only drinks caffeinated diet green tea. I provided education that excess caffeine can cause dehydration, which will raise her BS. She states she can cut back and switch to decaf.
BS during visit was 278 mg/dL post prandial.
Original Note:
11/20/2024 DIABETES EDUCATION CONSULTATION
I met with patient to review diabetes management.
I educated on physiology of T2D, organ damage, managing with medications, monitoring BG, nutrition, activity, sleep and managing stress. I reinforced signs of hyperglycemia, hypoglycemia and hypoglycemia protocol; BS parameters and recommended HbA1c
goals. I provided written material on insulin instruction, glucometer and CGM instructions, glucose tracker, medic alert bracelet and outpatient DSME program.
I provided patient with a [employer] glucometer sample kit. Provided verbal instructions on proper blood sugar testing technique, and demonstration with patient�s participation. Patient states that checking her blood sugar multiple times a
day will be too much and that she won't do it.
I educated and demonstrated on insulin injection technique, timing, and storage. Discussed long and short acting insulin; onset/peak/duration, and encouraged her to administer his own injections with RN supervision while admitted. Discussed normal
target glucose ranges and a monitoring schedule 15 minutes before each meal when prescribed Novolog, and before bedtime. She also stated that she will not give herself mealtime insulin. She asked about oral medications and a CGM. Will discuss with
PAIRER [employer]STANDARD.
Encouraged patient to follow up with her PCP for post d/c appointment and to monitor medication and blood glucose levels. Provided list of endocrinologists if desired, to contact insurance company to verify in network status. Requested a
prescription for blood sugar testing supplies to be sent to her pharmacy on record. Patient verbalized understanding.
[2024-11-20 15:20] VITALS: BP 166/66
[2024-11-20 16:50] LABS: Glucose - Point of Care 193 mg/dl (70-99)
[2024-11-20] MEDS: CRESTOR 40 MG PO (17:24)
[2024-11-20] MEDS: PROTONIX 40 MG PO (17:24)
[2024-11-20] MEDS: LOVENOX 40 MG SC (17:24)
[2024-11-20 20:35] LABS: Glucose - Point of Care 145 mg/dl (70-99)
[2024-11-20] MEDS: KLONOPIN 0.5 MG PO (20:49)
[2024-11-20] MEDS: LEXAPRO 20 MG PO (20:49)
[2024-11-20] MEDS: LANTUS 0.15 UNITS SC (20:53)
[2024-11-20 23:00] VITALS: BP 147/56
[2024-11-21 07:00] VITALS: BP 184/67
[2024-11-21] MEDS: DUONEB 3 ML INH ×3 (07:28→15:31)
[2024-11-21] MEDS: PULMICORT 0.25 MG INH (07:28)
[2024-11-21] MEDS: NORVASC 5 MG PO (07:50)
[2024-11-21] MEDS: MUCINEX 600 MG PO (07:50)
[2024-11-21] MEDS: DELTASONE 40 MG PO (07:50)
[2024-11-21 08:00] LABS: Glucose - Point of Care 109 mg/dl (70-99)
[2024-11-21] MEDS: NOVOLOG FLEXPEN-LOW RESISTANCE SC ×2 (08:00→12:04)
--- NOTE | 2024-11-21 08:01 | PN.DE.MGMTRT ---
Insulin Management
- -
11/21/2024: Diabetes Management Consult Follow up
Patient admitted with c/o worsening cough and wheezing, associated with 2 weeks h/o URI symptoms described as runny nose, dry cough and postnasal drip. PMH: Asthma, HLD, HTN, Depression Anxiety, GERD, Obesity. In the ED, she was continued on IV
steroid, contributing to Hyperglycemia. Prior to admission patient had never been told she has diabetes - was taking no medication for diabetes; A1C 7.8%, cr .6, eGFR > 60.
Pt awake, alert, oriented, resting in bed, offers no complaints, able to discuss diabetes care plan.
States she is on chronic steroids (Pred 5mg daily) and has been on and off high dose steroids since the summer.
Pt has been on IV steroids- Dexa 4 mg IV Q6 hrs, dose has been tapered down to oral pred 40mg daily
Yesterday patient received 7 units novolog AC and 15 units lantus @ HS, metformin 500 mg BID has also been started.
Fasting glucose today 109, pre lunch 129.
Dr. Leone has started glipizide 2.5 mg daily and metformin 500 mg BID. Will continue oral meds stop lantus. Patient adamant she does not want insulin. Discussed at length importance of reducing portion sizes to prevent glucose elevations. Will
ask inpatient dietitian to see patient. Patient anxious for discharge.
Discussed with Nurse. Will cont to follow
Pt was seen by the Diabetes Nurse Educator for glucose meter and insulin administration instructions.
Diabetes History
- -
Type of Diabetes: 2
Pre-Admission Diabetes Regimen
Lab Results
Hemoglobin A1c 7.8 % (4.0-5.6) H 11/19/24 08:20
Insulin Pump Settings
IP Diabetes Regimen
11/20/24 11/20/24 11/20/24
08:14 12:46 16:48
POC Glucose 157 H 125 H 193 H
10/14/25 10/15/25
20:32 07:59
POC Glucose 145 H 109 H
Meal type: Breakfast
Amount consumed: 100%
Patient Education
[2024-11-21] MEDS: GLUCOTROL XL (EXTENDED RELEASE) 2.5 MG PO (08:05)
[2024-11-21] MEDS: NOVOLOG FLEXPEN SC (08:05)
[2024-11-21] MEDS: GLUCOPHAGE 500 MG PO ×2 (08:05→15:59)
--- NOTE | 2024-11-21 09:49 | W.PN.PUL.V3 ---
Today's Communication / Plan
-
Prednisone taper
Home nebulizers
Trelegy at home in addition to mucolytic's
Outpatient pulmonary/sleep disorders follow-up
Assessment
-
79-year-old non-smoking female with a history of hypertension, hyperlipidemia, depression, anxiety, GERD, obesity as well as asthma who presented with wheezing and cough unresponsive to outpatient prednisone and Xopenex noted to have asthma
exacerbation-pulmonary consulted for asthma exacerbation 11/19/2024
Asthma-moderate persistent with acute exacerbation
Leukocytosis
Hyperglycemia-elevated A1c 7.8%
Leukocytosis
Mild hyponatremia
Conditions present prior to admission:
Asthma.
Hyperlipidemia.
Depression.
Anxiety.
GERD.
Obesity.
Plan
Respiratory decompensation due to underlying asthma with acute exacerbation
Supplemental oxygen if needed-attempt to wean-assess discharge supplemental oxygen needs
Incentive spirometry
DuoNebs and Pulmicort continue
Prednisone 40 mg daily for 4 days, then 30 mg daily for 4 days, then 20 mg daily for 4 days and then 10 mg daily for 4 days and then discontinue
Mucolytic's
Antitussives as needed
Sputum culture if able to produce
Continue to observe off antibiotics
Observe off antibiotics
Monitor leukocytosis
Follow blood sugar
Insulin supplementation as needed-note A1c elevation
Diabetic nurse practitioner following-correspondence reviewed
DVT prophylaxis-on Lovenox
GI prophylaxis-on pantoprazole
Nutrition
Early mobilization
In the past saw Lloyd Porter and subsequently Dr Talbot-would like to follow-up locally
Outpatient pulmonary/sleep disorders [id number] on Mucinex, and prednisone taper outlined above, has Xopenex nebulizers at home as well as Trelegy 200
Diagnostic data:
Chest x-ray 07/15/2024-NAD
Chest x-ray 11/18/2024-NAD
X-ray neck 07/15/2024-soft tissue of the neck appear intact without significant focal abnormalities
6 minute walk test-09/20/24: She stopped the walk test aftter almost 3 minutes Because of fatigue. Her resting saturation was 100% and declined to 98%. Her maximum heart rate was 102 bpm with exercise and 80 bpm at rest. Her perceived dyspnea was
moderate at 3 on a 10 point dyspnea scale. She ambulated 350 feet.
Echocardiogram-07/2021: He has 60-65%.� Moderate diastolic dysfunction.� Features were consistent with a pseudo-normal LV filling pattern with concomitant abnormal relaxation and increased filling pressure.Moderate mitral regurgitation and mild to
moderate aortic insufficiency. Normal RV size and systolic function.� Estimated RV systolic pressure 29 mmHg.
Nuclear stress test-09/01/22: Stress ejection fraction 73%.� LV systolic function post stress test was normal.� Resting ejection fraction was 84%.� Fixed perfusion defect which was small with mild reduction in uptake present in the apical location
that was predominantly fixed..� No signs of ischemia.
Subjective Data
-
Date of Service:
Date of Service: November 21, 2024
Chief Complaint: Pulmonary Follow Up and Dyspnea Follow Up
Subjective:
Feels better, still has wheezing, minimal cough, no chest pain or abdominal pain, anxious for discharge
Review of Systems
General: Other (Per HPI)
Objective Data
Data Reviewed
Vital Signs / I&O:
Vital Signs
Temp Pulse Resp BP Pulse Ox
97.8 F 76 15 184/67 96
11/21/24 07:00 11/21/24 07:50 11/21/24 07:31 11/21/24 07:50 11/21/24 07:31
Intake and Output
11/20/24 11/21/24 11/22/24
06:59 06:59 06:59
Intake Total 960 / 960 480 / 480
Balance 960 / 960 480 / 480
SaO2: 96
Physical Exam
General: Respiratory Distress (n) and Comfortable
HEENT: Normocephalic and Moist Mucous Membranes
Cardiovascular: Regular Rhythm
Respiratory: Wheeze ( expiratory), Rhonchi ( expiratory), Non-Labored Respirations, Accessory Resp Muscle Use (n) and Stridor (n)
GI: Soft, Non Distended and Non Tender
Neurology: Awake and No Motor Deficits
Skin: Warm, Good Color, Cyanosis (n), Jaundice (n) and Rash (n)
Labs/Micro/Reports
Lab Data
11/19/24 08:20
11/19/24 08:20
Microbiology
11/18/24 19:13 Nasal Swab Respiratory Syncytial Virus Ag - Final
Negative for Respiratory Syncytial Virus.
A false negative result may be obtained with a specimen
collected early in the acute phase. If symptoms persist, a
new specimen should be tested.
11/18/24 18:44 Nasal Swab Influenza Types A & B (ZIGGY) - Final
Negative for Influenza A & B, NAAT
Negative results must be combined with clinical observations
and patient history.
Nucleic Acid Amplification test (NAAT)performed on the
[employer] platform.
--- NOTE | 2024-11-21 10:00 | W.PN.HOSP.TC ---
Today's Communication/Plan
-
dc
Assessment / Plan
Assessment / Plan
Physical exam:
General: Acutely ill
HEENT: Normocephalic, Atraumatic and Moist Mucous Membranes
Respiratory: much less bilateral wheezes, no crackles or rhonchi.
Cardiac: Regular Rhythm and S1/S2
GI: Soft, Nontender and Nondistended
Musculoskeletal: No Clubbing, No Cyanosis and No Edema
Neuro: Awake, Alert and Oriented, no neurological deficits
Psych: Calm
Patient 79 years old female who came into the hospital with persistent URI and asthma exacerbation. She will need to be observed in the hospital and treated accordingly.
PLAN:
Acute asthma exacerbation:
Likely exacerbated by viral URI
Negative influenza COVID-19, and RSV.
Continue with steroid therapy, changed to oral prednisone then taper slowly.
No history of smoking, brief history when she was 20s
Acapella
Mucinex 600 mg twice a day
Pulmicort inhalers twice a day
Seen chest x-ray and no signs of pneumonia
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 She has scheduled to see pulmonary in [place]
In December 2024 consult pulmonary. She wanted to see our pulmonary, consulted
[facility]
Not using C pap
# Elevated blood pressure, suspect primary hypertension, untreated/undiagnosed
No chest pain shortness of breath. EKG NSR/ Normal EKG.
Started the patient on low-dose amlodipine. Discussed with patient and her daughter
Patient was counseled to get blood pressure machine at home, document her readings and share them with the primary care doctor
Hyperglycemia:
Hemoglobin A1c 7.8. c/w undiagnosed or untreated DM. Pt reported that she was never told to check her blood sugar and does not have glucometer at home.
BMI is 37, obesity,
Started on long acting Premeal insulin. Expect hyperglycemia induced by steroid. Blood glucose improved with reducing steroid. Patient was seen by diabetic nurse practitioner. She was educated supplies. Patient refuses to use insulin at home.
Requested oral hypoglycemic agent. Will start on low-dose metformin and glipizide. Patient verbalized understanding to instructions on how to monitor her blood glucose, was given glucometer with supplies. I think it remains to be seen if she
will follow the instructions.
Counseled for healthy lifestyle, weight loss follow-up with her primary care doctor.
Consulted diabetic nurse practitioner
Hyperlipidemia:
Continue rosuvastatin 40 mg p.o. every night
GERD:
Continue PPI, she takes it Q PM at home and works well for her.
Depression anxiety:
Continue Lexapro 30 mg every night
Continue clonazepam 0.5 mg every night
Anemia with microcytic index:
Mild and no signs of bleeding
Continue to monitor, advised to f/w PCP.
Hyponatremia:
Mild
No confusion
DVT prophylaxis:
Lovenox SQ
CODE STATUS:
Full code
Total discharge time spent to see the patient, examine the patient, review data and lab results, discuss discharge plan with patient, daughter Rochelle, nursing staff around 67 minutes
Anticipated Discharge: Today
Subjective/Interval History
-
Date of Service: November 21, 2024
No chest pain
No sob
Refuses insulin treatment , requesting to go home
Objective Data
-
Vital Signs:
Vital Signs
Temp Pulse Resp BP Pulse Ox
97.8 F 76 15 184/67 96
11/21/24 07:00 11/21/24 07:50 11/21/24 07:31 11/21/24 07:50 11/21/24 09:49
I&O
11/20/24 11/21/24 11/22/24
06:59 06:59 06:59
Intake Total 960 / 960 480 / 480
Balance 960 / 960 480 / 480
--- NOTE | 2024-11-21 11:31 | CM ---
Chart reviewed. Patient will d/c home today
Seen patient bedside, currently receiving neb treatment. Aware of d/c today.
Therapy indicated no needs. Patient declined any needs at this time
IMM verbally reviewed, copy provided, copy on chart
Daughter will transport home
Plan: Home, no needs
[2024-11-21 11:56] LABS: Glucose - Point of Care 129 mg/dl (70-99)
--- NOTE | 2024-11-21 13:30 | W.DCSUMMARY ---
Discharge Summary
Discharge Data
Date of Admission: 11/18/24
Date of Discharge: 11/21/24
-
Pending Results: No
Hospital Course
79 years old female presented with wheezing and cough. Patient did not have hypoxia. No fever. Influenza and COVID screen test were negative. Chest radiography did not show acute findings. She had mild leukocytosis from prior steroid therapy.
Patient was admitted for treatment of acute asthma exacerbation. Pulmonary doctor evaluated the patient. She was maintained on steroid therapy in addition to nebulizer treatment. Patient was noted to have hyperglycemia. Hemoglobin A1c was 7.8.
Patient reported history of diabetes but not on medication and did not monitor her blood glucose levels. Diabetic nurse practitioner was consulted. Patient was initially started on insulin treatment to treat hyperglycemia which was induced by her
acute illness and steroid therapy. Patient responded to treatment well. Her blood sugar became better controlled. Patient did not want to be on insulin therapy at home. She was started on low-dose metformin and glipizide with good blood glucose
control. Patient was instructed regarding blood glucose monitoring and was giving supplies. Her breathing started to improve. Pulmonary doctor recommended slow taper of prednisone and outpatient follow-up. Patient was noted to have high blood
pressure. She was not taking blood pressure medication and she did not have diagnosis of hypertension. Her systolic blood pressure was persistently high around 170-180. Patient felt her high blood pressure could be related to the acute illness
but she was at advised to start taking blood pressure medication. She was started on amlodipine. She responded well. Patient was also instructed to monitor blood pressure and follow-up with primary care doctor. Patient remained hemodynamically
stable. Patient was discharged home in stable condition.
Discharge Plan
-
Patient Disposition: Home (Routine Discharge)
Discharge Diagnosis/Procedures: -Asthma-moderate persistent with acute exacerbation:
Prednisone taper then continue 5 mg prednisone until you see pulmonary doctor.
Home nebulizers
Trelegy at home in addition to mucolytic's
Outpatient pulmonary/sleep disorders follow-up
-Leukocytosis. Negative influenza/RSV/COVID.
-Hyperglycemia-elevated A1c 7.8%. Started on a new medication called metformin and glipizide. Potential side effects include acidosis, hypoglycemia. Monitor your blood glucose as instructed and take your glucometer with you when you see your
primary care doctor to adjust your medications. Stop taking your diabetic medications and call your primary care doctor if your blood glucose goes low or symptomatic hypoglycemia ( blood glucose lower than 90).
-High blood pressure/hypertension.: You were started on new medicine called amlodipine, calcium channel reji. Potential side effects include ankle edema, low blood pressure/hypotension. Measure your blood pressure twice daily in first week and
share readings with your primary care doctor.
-Mild hyponatremia, sodium at 134, follow with family doctor.
Diet: Diabetic, Carb Controlled
Referrals:
Jhony García MD [Family Provider, Internal Medicine]
Ramos Dennis MD [Active, Pulmonary Medicine] - in two to three weeks
Referral Note: asthma exacerbation
Prescriptions:
New
metformin 500 mg Tablet
500 mg PO BID@0800,1700 Qty: 60 0RF
glipizide 2.5 mg Tablet Extended Release 24hr
2.5 mg PO DAILY Qty: 30 0RF
guaifenesin 600 mg Tablet Extended Release 12hr
600 mg PO Q12 Qty: 60 0RF
amlodipine 5 mg Tablet
5 mg PO DAILY Qty: 30 0RF
prednisone 10 mg tablet
10 mg PO DAILY Qty: 30 0RF
Rx Instructions:
30 mg X 3 days then 20 mg X 3 days then 10 mg X 3 days then 5 mg until see pulmonary doctor
(DME) Contour Next Test Strips Strip
Qty: 60 0RF
Rx Instructions:
Pt Testing 2 times a day
(DME) lancets [Microlet Lancet] Misc
Qty: 60 0RF
Rx Instructions:
Pt testing 2 times a day
Continued
levalbuterol HCl 0.63 mg/3 mL Solution For Nebulization
0.63 mg INHALATION R Q8HPRN PRN (Reason: sob)
clonazepam 0.5 mg Tablet
0.5 mg PO HS
omeprazole 40 mg Capsule,Delayed Release(Dr/Ec)
40 mg PO QPM
escitalopram oxalate [Lexapro] 20 mg Tablet
20 mg PO HS
rosuvastatin [Crestor] 40 mg Tablet
40 mg PO HS
Trelegy Ellipta 100-62.5-25 mcg Blister With Device
1 inh INHALATION R QPM
Discontinued
prednisone 5 mg Tablet
5 mg PO DIRECTED
Rx Instructions:
start on 11/13/24 take 12 tablets on day one then 8 tablets on day 2 and 3 and then decrease by 1 tablet each day going forward until finished
Discharge Orders:
Discharge Patient (As Directed); Ordered 11/21/24
Ordered By: Kg Leone
Discharge Date and Time
Print Language: BULGARIAN
[2024-11-21] MEDS: FLUZONE HIGH-DOSE 2025-26 0.5 ML IM (13:48)
[2024-11-21 14:37] VITALS: BP 133/61; PULSE 45; O2SAT 98
[2024-11-21 15:00] VITALS: BP 149/52
[2024-11-21 15:46] VITALS: BP 149/52
[2024-11-21 16:22] LABS: Glucose - Point of Care 181 mg/dl (70-99)
[2024-11-21] MEDS: NOVOLOG FLEXPEN-LOW RESISTANCE 1 UNITS SC (16:41)
[2024-11-21] MEDS: LOVENOX 40 MG SC (16:41)
[2024-11-21] MEDS: PROTONIX 40 MG PO (16:42)
[2024-11-21] MEDS: CRESTOR 40 MG PO (16:42)
== END 2024-11-21 17:21 | disposition home or self-care (01) | DRG 202 ==
LOC: 4 WEST ACU 07:45
PROVIDERS: Physician Assistant Medical; ADMITTING PHYSICIAN Hospitalist; ATTENDING PHYSICIAN Internal Medicine; EMERGENCY PHYSICIAN Student in an Organized Health Care Education/Training Program; FAMILY PHYSICIAN Internal Medicine; OTHER PHYSICIAN Internal Medicine Critical Care Medicine
PROC: 3E02340 Introduction of Influenza Vaccine into Muscle, Percutaneous Approach (ICD-10-PCS; 2024-11-21)
DX: J45.41 Moderate persistent asthma with (acute) exacerbation (principal); E87.1 Hypo-osmolality and hyponatremia; J44.1 Chronic obstructive pulmonary disease with (acute) exacerbation; E11.65 Type 2 diabetes mellitus with hyperglycemia; I10 Essential (primary) hypertension; F41.9 Anxiety disorder, unspecified; F32.A Depression, unspecified; K21.9 Gastro-esophageal reflux disease without esophagitis; E66.9 Obesity, unspecified; Z88.0 Allergy status to penicillin; Z88.2 Allergy status to sulfonamides; Z79.899 Other long term (current) drug therapy; D50.9 Iron deficiency anemia, unspecified; J06.9 Acute upper respiratory infection, unspecified; Z11.52 Encounter for screening for COVID-19; Z23 Encounter for immunization; E78.00 Pure hypercholesterolemia, unspecified
CPT/HCPCS: 71046; 80048; 82962; 83036; 83735; 85025; 87502; 87807; 87811; 93005; 94640; 96365; 96366; 96375; 97162; 97166; 99285

== ENCOUNTER 2024-12-02 18:57 | Inpatient (IN) | payer OTHER, SELFPAY ==
[2024-12-02 14:47] VITALS: BP 139/51
[2024-12-02 15:12] LABS: Hematocrit 38.6 % (37.0-47.0); Hemoglobin 12.3 g/dL (12.0-16.0); Mean Corp Hgb Conc. 31.9 g/dL (33.0-37.0); Mean Corpuscular Volume 76.0 fL (81.0-99.0); Nucleated Red Blood Cells % 0 %; Platelet Count 311 10^3/uL (130-400); Red Cell Dist. Width 17.7 % (11.5-14.5)
[2024-12-02 15:40] LABS: ALT (SGPT) 22 U/L (0-35); AST (SGOT) 21 U/L (14-36); Albumin 3.6 g/dl (3.5-5.0); Alkaline Phosphatase 101 U/L (38-126); Blood Urea Nitrogen 19 mg/dl (7-17); Calcium 9.4 mg/dl (8.4-10.2); Carbon Dioxide 26 mmol/L (22-30); Chloride 101 mmol/L (98-107); Glucose 193 mg/dl (70-99); Potassium 4.5 mmol/L (3.5-5.1); Sodium 135 mmol/L (135-145); Total Protein 6.4 g/dl (6.3-8.2); eGFR > 60.00
[2024-12-02 15:52] LABS: Troponin I < 0.012 ng/ml
[2024-12-02 16:37] VITALS: BP 147/44
[2024-12-02] MEDS: DUONEB 3 ML INH (17:28)
--- NOTE | 2024-12-02 17:34 | ED.GENMED ---
History of Present Illness
<Jose Elias Augustin PA-C - Last Filed: 12/02/24 18:00>
General
Chief Complaint: Breathing Problem
Source: patient
Time Seen by Provider: 12/02/24 17:18
History of Present Illness
History of Present Illness:
79-year-old female with past medical history of asthma [id number] diabetes, recently admitted to this hospital for an acute asthma exacerbation presenting back to the emergency department due to continued and worsening shortness of
breath, cough and wheezing. She has been using her lev albuterol at home but with minimal relief. She denies any fevers, chills or rigors. Family states patient has been much more fatigued since getting home and states she is having a hard time
ambulating due to the shortness of breath. No known sick contacts, recent travel and no lower extremity pain or edema. Patient continues on her steroids that she was prescribed upon discharge and does have a scheduled outpatient follow-up visit
with pulmonary but states this is not for another week or so.
Past History
<Jose Elias Augustin PA-C - Last Filed: 12/02/24 18:00>
Past History
ED Past Medical History: Asthma, COPD and NIDDM
ED Past Surgical History: None
Social History
Tobacco: Non-smoker
Alcohol: None
Drug: None
Personal:
Living: alone
Review of Systems
<Jose Elias Augustin PA-C - Last Filed: 12/02/24 18:00>
Review of Systems
All Other Systems: ROS reviewed and negative except as documented in HPI and ROS
Phy Exam
<Jose Elias Augustin PA-C - Last Filed: 12/02/24 18:00>
Physical Exam
Physical Exam:
GENERAL: Alert , in no apparent distress
HEAD: Normocephalic atraumatic
EYE: conjunctiva clear
NECK: Supple
ENT: o/p clr, mmm.
CARDIAC: Regular rate and rhythm
LUNGS: Scattered rhonchi and wheezing throughout the posterior lung rodriguez, slightly increased work of breathing speaking full sentences, coughing throughout the exam
NEUROLOGICAL: Alert and oriented
SKIN: Warm and dry, skin intact.
MUSCULOSKELETAL: well perfused.
PSYCH: Normal and appropriate interaction.
Scores
<Jose Elias Augustin PA-C - Last Filed: 12/02/24 18:00>
Heart Failure Risk
Heart Failure Risk Score: Not Applicable
Heart Score for Chest Pain Patients
STEMI patient?: Not applicable
Withdrawal Assessment of Alcohol
Withdrawal Assessment Completed?: Not applicable
Course
<Jose Elias Augustin PA-C - Last Filed: 12/02/24 18:00>
Orders/Labs/Results
Orders:
Orders
12/02/24 14:49
ECG [Electrocardiogram (*1)] Urgent
Reason for Study: Shortness of Breath
12/02/24 14:50
EKG- Treatment ONCE
CR Chest - 2 Views Urgent
Comment:
Reason For Exam: shortness of breath
12/02/24 14:56
Complete Blood Count/With Diff Urgent
Comprehensive Metabolic Panel Urgent
NT-proBNP Urgent
Troponin I Urgent
12/02/24 17:06
Ipratropium/Albuterol Sulfate [Duoneb] 3 ml .ROUTE .STK-MED ONE
12/02/24 17:28
Ipratropium/Albuterol Sulfate [Duoneb] 3 ml INH R NOW ONE
12/02/24 17:31
CefTRIAXone [Rocephin] 1,000 mg IV NOW STA
Doxycycline [Vibramycin] 100 mg PO NOW STA
12/02/24 17:32
MethylPREDNISolone PF [Solu-Medrol Pf] 40 mg IV NOW STA
12/02/24 18:37
Admit/Transfer Patient As Directed
Co-Sign Provider:
Level of Care: Inpatient admission
Assign to:: Medical/Surgical
Physician / Group: landy mendiola
Diagnosis: acute on recent mod persistent asthma exac
Reason for Hospitalization: acute on recent mod persistent asthma exac
Expected length of stay greater than two midnights?: Yes
ELOS- Estimated Length of Stay in days: 3
I certify the patient meets the requirements for IP care: Yes
Code Status As Directed
Resuscitation Status: Full Code
12/02/24 18:44
PRN Pain Medication Management As Directed
May give lesser potent ordered pain med per pt: Yes
preference::
Protocol:: Medication orders for pain may be administered in a
manner that supports deferring to patient preference
when the pt is:
- Requesting an ordered lesser potent pain medication.
Least to most potent pain medications are defined
as: acetaminophen < NSAID < tramadol < opioids
(morphine, oxycodone, hydromorphone).
- Requesting a lesser dose of the same medication IF
ORDERED.
- Requesting a less intrusive route of administration
if both routes are prescribed by the provider (PO <
IV).
12/02/24 18:46
Guaifenesin/Dextromethorphan [Robitussin Dm] 10 ml PO Q4HPRN PRN
12/02/24 18:50
PULMONARY CONSULT Routine
Consulting Provider: Bhanu Richmond
Was physician already notified: Yes
Reason for consult: exac mod persistent asthma
12/02/24 22:00
Dexamethasone Sod Phosphate [Decadron] 4 mg IV Q6H
Abnormal Lab Results
12/02/24
14:56
WBC 17.9 H 10^3/uL
(4.8-10.8)
MCV 76.0 L fL
(81.0-99.0)
MCH 24.2 L pg
(27.0-31.0)
MCHC 31.9 L g/dL
(33.0-37.0)
RDW 17.7 H %
(11.5-14.5)
Abs Immat Gran (auto) 0.1 H 10^3/uL
(0-0.05)
Absolute Neuts (auto) 15.9 H 10^3/uL
(1.4-6.5)
Immature Gran % 0.8 H %
(0-0.5)
Neutrophils % 88.3 H %
(42.2-75.2)
Lymphocytes % 8.6 L %
(20.5-51.1)
BUN 19 H mg/dl
(7-17)
Glucose 193 H mg/dl
(70-99)
12/02/24 14:56
12/02/24 14:56
Vital Signs
Initial and Last Documented VS:
Initial Vital Signs
Temp Pulse Resp BP Pulse Ox
98.4 F 83 20 139/51 97
12/02/24 14:47 12/02/24 14:47 12/02/24 14:47 12/02/24 14:47 12/02/24 14:47
Last Documented Vital Signs
Temp Pulse Resp BP Pulse Ox
98.4 F 83 15 147/44 98
12/02/24 14:47 12/02/24 18:30 12/02/24 18:30 12/02/24 16:37 12/02/24 18:30
<Linda Hilliard, DO - Last Filed: 12/02/24 19:11>
Orders/Labs/Results
Orders:
Orders
12/02/24 14:49
ECG [Electrocardiogram (*1)] Urgent
Reason for Study: Shortness of Breath
12/02/24 14:50
EKG- Treatment ONCE
CR Chest - 2 Views Urgent
Comment:
Reason For Exam: shortness of breath
12/02/24 14:56
Complete Blood Count/With Diff Urgent
Comprehensive Metabolic Panel Urgent
NT-proBNP Urgent
Troponin I Urgent
12/02/24 17:06
Ipratropium/Albuterol Sulfate [Duoneb] 3 ml .ROUTE .STK-MED ONE
12/02/24 17:28
Ipratropium/Albuterol Sulfate [Duoneb] 3 ml INH R NOW ONE
12/02/24 17:31
CefTRIAXone [Rocephin] 1,000 mg IV NOW STA
Doxycycline [Vibramycin] 100 mg PO NOW STA
12/02/24 17:32
MethylPREDNISolone PF [Solu-Medrol Pf] 40 mg IV NOW STA
12/02/24 18:37
Admit/Transfer Patient As Directed
Co-Sign Provider:
Level of Care: Inpatient admission
Assign to:: Medical/Surgical
Physician / Group: landy mendiola
Diagnosis: acute on recent mod persistent asthma exac
Reason for Hospitalization: acute on recent mod persistent asthma exac
Expected length of stay greater than two midnights?: Yes
ELOS- Estimated Length of Stay in days: 3
I certify the patient meets the requirements for IP care: Yes
Code Status As Directed
Resuscitation Status: Full Code
12/02/24 18:44
PRN Pain Medication Management As Directed
May give lesser potent ordered pain med per pt: Yes
preference::
Protocol:: Medication orders for pain may be administered in a
manner that supports deferring to patient preference
when the pt is:
- Requesting an ordered lesser potent pain medication.
Least to most potent pain medications are defined
as: acetaminophen < NSAID < tramadol < opioids
(morphine, oxycodone, hydromorphone).
- Requesting a lesser dose of the same medication IF
ORDERED.
- Requesting a less intrusive route of administration
if both routes are prescribed by the provider (PO <
IV).
12/02/24 18:46
Guaifenesin/Dextromethorphan [Robitussin Dm] 10 ml PO Q4HPRN PRN
12/02/24 18:50
PULMONARY CONSULT Routine
Consulting Provider: Bhanu Richmond
Was physician already notified: Yes
Reason for consult: exac mod persistent asthma
12/02/24 22:00
Dexamethasone Sod Phosphate [Decadron] 4 mg IV Q6H
Abnormal Lab Results
12/02/24
14:56
WBC 17.9 H 10^3/uL
(4.8-10.8)
MCV 76.0 L fL
(81.0-99.0)
MCH 24.2 L pg
(27.0-31.0)
MCHC 31.9 L g/dL
(33.0-37.0)
RDW 17.7 H %
(11.5-14.5)
Abs Immat Gran (auto) 0.1 H 10^3/uL
(0-0.05)
Absolute Neuts (auto) 15.9 H 10^3/uL
(1.4-6.5)
Immature Gran % 0.8 H %
(0-0.5)
Neutrophils % 88.3 H %
(42.2-75.2)
Lymphocytes % 8.6 L %
(20.5-51.1)
BUN 19 H mg/dl
(7-17)
Glucose 193 H mg/dl
(70-99)
12/02/24 14:56
12/02/24 14:56
Vital Signs
Initial and Last Documented VS:
Initial Vital Signs
Temp Pulse Resp BP Pulse Ox
98.4 F 83 20 139/51 97
12/02/24 14:47 12/02/24 14:47 12/02/24 14:47 12/02/24 14:47 12/02/24 14:47
Last Documented Vital Signs
Temp Pulse Resp BP Pulse Ox
98.4 F 83 15 147/44 98
12/02/24 14:47 12/02/24 18:30 12/02/24 18:30 12/02/24 16:37 12/02/24 18:30
<Jose Elias Augustin PA-C - Last Filed: 12/02/24 18:00>
MDM/Problems Addressed
Differential Diagnosis Includes:
Asthma/COPD exacerbation
Pneumonia
Bronchitis
PE considered although thought to be much less likely
MDM/Problems Addressed:
79-year-old female presenting to the ER for evaluation after recently being here for an acute asthma exacerbation, initially felt better upon discharge but symptoms started gradually worsening again over the last few days. Treated here with a
nebulizer with slight improvement but patient still with wheezing and rhonchi. Pulse ox around 89% on room air, placed on 2 L nasal cannula with good response into the mid 90s. Given her mild hypoxia and continued worsening symptoms despite her
outpatient regimens we will plan for readmission. Hospitalist team notified.
Chronic conditions affecting care: COPD and Asthma
Acute Exacerbation and/or Progression of Chronic Illness: COPD and Asthma
<Jose Elias Augustin PA-C - Last Filed: 12/02/24 18:00>
*Radiology
Radiology exam reviewed: radiology read reviewed
*Pulse Oximetry
SaO2: 96
Oxygen Mode of Delivery: Room air
Patient hypoxic: no
*Critical Care Note
Total Time (30-74mins, 75-104mins- exclusive of procedures): Not Applicable
<Jose Elias Augustin PA-C - Last Filed: 12/02/24 18:00>
Patient Management
Discussion with other providers: Hospitalist
ED Attending Note
<Jose Elias Augustin PA-C - Last Filed: 12/02/24 18:00>
-
Portions of this chart may have been created with voice recognition software.� Occasional wrong word or��sound alike� substitutions may have occurred due to the inherent limitations of voice recognition software.
<Linda Hilliard DO - Last Filed: 12/02/24 19:11>
ED Attending Note
Patient seen and examined by attending physician: Yes
I performed the substantive portion of visit, reviewed & personally made and approve the management plan that is documented in note by myself or KATIE.: Yes
I performed a history and physical exam of patient and discussed management with resident, I reviewed resident's note and agree with documented findings and plan of care.: Yes
ED Attending Note:
79-year-old female with past medical history of diabetes and asthma presenting to the emergency department for continued shortness of breath, cough, wheezing. Patient had similar symptoms about 2 weeks ago at which time she was admitted. Daughter
at bedside does note that she started coughing after her 2-year-old was sick, and never completely recovered. Patient has been on steroids without significant relief. Denies fever. Cough is dry. Vitals on arrival significant for hypoxia.
On exam, noted to be tachypneic with increased work of breathing, expiratory wheezing. Continued concern for acute asthma exacerbation. Chest x-ray shows atelectasis. Labs show leukocytosis, which could be secondary to steroid use. However in
the setting of persisting coughing, will treat community-acquired pneumonia. Patient administered steroids, breathing treatments. Ultimate plan for admission for failure of outpatient therapy, continued respiratory monitoring and oxygen support
with DuoNebs and continued steroids
Discharge Plan
Departure
Patient Disposition: Admit
Date of Disposition: 12/02/24
Time of Disposition: 17:35
Presentation/result/management discussed w/ accepting MD/DO: Hospitalist
Discharge Problem:
Asthma with acute exacerbation, Pneumonia
Interventions
Interventions:
ED- Pulmonary Assessment Last Done: 12/02/24 16:00
--- NOTE | 2024-12-02 17:49 | HPS.HSE ---
Addendum entered and electronically signed by Elle Huerta DO 12/02/24 20:35:
The patient has been discussed with Shantell and I have reviewed her history and physical and assessment and plan of care and agree with the below. The patient is a 79-year-old woman with past medical history significant for asthma who presents to the
emergency department secondary to wheezing and worsening shortness of breath. She recently was weaned off of her steroids. She has had a course of antibiotics that she said did not help. She has nasal congestion. She has cough and has been
trying to bring up sputum with difficulty. She is afebrile
Oxygen saturation has been stable and above 97% on room air, blood pressure 147/44 mmHg
Physical exam remarkable for tight decreased breath sounds bilaterally with end expiratory wheezing bilaterally
Cardiovascular regular rate rhythm no murmurs rubs or gallops
Abdomen soft nontender normoactive bowel sounds
Extremities no clubbing sinus no edema
Neuro is grossly intact without focal deficits
Labs are reviewed and as per below
Assessment and plan of care
# Acute exacerbation of asthma, moderate persistent, likely due to viral etiology
-Will hold off on antibiotics at this time
-Continue with nebulizer therapy
-Continue with IV steroids
-Pulmonary consultation appreciated
- Will give mucolytics
Further assessment and plan of care as per below
Original Note:
Family Physician
-
Family Physician: David Pearson
Chief Complaint
-
Wheezing, shortness of breath
History of Present Illness
79-year-old female returns today to the ER complaining of wheezing, shortness of breath despite home nebs and Trelegy Ellipta. She has been taking her Trelegy Ellipta but has not been taking lev albuterol as directed. She states symptoms have not
really gotten better since discharge she still has a chronic cough keeping her up all night long but not productive. This cough is making her feel tired. She did finish prednisone taper with last dose 10 mg yesterday that she finished. She denies
fever, chills, chest pain, palpitations, abdominal pain, nausea, vomiting, diarrhea, urinary symptoms. She is taking her diabetic medication as tolerated but does not have Accu-Chek machine she is too scared to prick herself. I emphasized the
importance of a diabetic diet given she is likely going to be on a longer taper of steroids. She had a recent admission 11/18 - 11/21/2024 secondary to asthma moderate persistent with acute exacerbation with symptoms of wheezing and cough and mild
leukocytosis from prior steroid therapy. She was also noted to be hyperglycemic with a HgbA1c of 7.8 she was seen by diabetic [employer] placed on insulin however did not want to continue that at home so was placed on metformin and glipizide for blood
sugar control. She also had hypertension with systolics 170�180 and was started on amlodipine this was thought to be due to acute illness/steroid use.
Medical History
Past Medical History
Past Medical History: Reports Other
Additional Past Medical History:
Asthma-moderate persistent
DM2 new diagnosis 11/18/2024
hyperlipidemia
depression
anxiety
GERD
Microcytic anemia
obesity
Past Surgical History: Reports None
Social History
Tobacco: Non-smoker
Alcohol: None
Drug: None
Personal: Single
Living: With Family (Daughter and son-in-law)
Employment: Retired
Family History
Family History: Not pertinent
Allergies / Home Medications
Allergies reflects when Allergies were last updated in [facility].
Home Medications with original date entered in [employer]
Allergy/Medication List:
Allergies
Allergy/AdvReac Type Severity Reaction Status Date / Time
Penicillins Allergy Unknown Unknown Verified 12/02/24 14:49
Sulfa (Sulfonamide Allergy Unknown Unknown Verified 12/02/24 14:49
Antibiotics)
Home Medications
clonazepam 0.5 mg tablet 0.5 mg PO HS Mental Health/Anxiety 11/18/24
escitalopram oxalate 20 mg tablet (Lexapro) 20 mg PO HS Depression 11/18/24
fluticasone fur. 100 mcg-umeclid 62.5 mcg-vilant 25 mcg inhalat.powder (Trelegy Ellipta) 1 inh inhalation R QPM Lung/Breathing Issues 11/18/24
levalbuterol HCl 0.63 mg/3 mL solution for nebulization 0.63 mg inhalation R Q8HPRN PRN sob 11/18/24
omeprazole 40 mg capsule,delayed release 40 mg PO DAILY Gastrointestinal Issue 11/18/24
rosuvastatin 40 mg tablet (Crestor) 40 mg PO HS High Cholesterol 11/18/24
amlodipine 5 mg tablet 5 mg PO DAILY #30 tabs 11/21/24
glipizide 2.5 mg tablet, extended release 24 hr 2.5 mg PO DAILY #30 tabs 11/21/24
prednisone 10 mg tablet 10 mg PO DAILY #30 tabs 11/21/24
metformin 500 mg tablet 500 mg PO BID@0800,1700 Diabetes 12/02/24
Review of Systems
-
History Source: Patient and Family (Daughters at bedside)
A 12 point ROS was completed and negative except as noted: Yes
Constitutional: Reports Fatigue; Denies Fever or Chills
EENT: Denies Sore Throat or Runny Nose
Respiratory: Reports Trouble Breathing and Other (Wheezing throughout both lung rodriguez); Denies Cough
Cardiac: Denies Chest Pain, Diaphoresis, Palpitations or Syncope
Abdomen/GI: Denies Abdominal Pain, Nausea, Vomiting, Diarrhea, Constipated or Bloody Stools
: Denies Dysuria, Frequency, Flank Pain, Incontinence, Difficulty Voiding or Urgency
Musculoskeletal: Denies Joint Pain or Edema
Skin: Denies Itching or Rash
Neurological: Reports Weakness; Denies Dizzy or Headache
Endocrine: Reports No Symptoms
Hematologic/Lymphatic: Reports No Symptoms
Psych: Reports Calm
Physical Exam
Vital Signs
Vital Signs
Temp Pulse Resp BP Pulse Ox
98.4 F 86 15 147/44 96
12/02/24 14:47 12/02/24 17:00 12/02/24 17:00 12/02/24 16:37 12/02/24 17:35
Physical Exam
General: Obese; No Fever or Chills
HEENT: NormoCephalic, Anicteric, Moist mucous membranes, PERRLA, Goodman Conjunctivae and No Ptosis
Respiratory: Wheezes (Throughout both lung rodriguez expiratory bilaterally); No Rales or Rhonchi
Cardiac: S1/S2 and Regular Rhythm; No Murmur, Rub, Gallop or Peripheral Edema
Breast: Deferred by me
GI: Soft, Non Tender, Non Distended, Normal Bowel Sounds and No Hepatosplenomegaly
Rectal: Deferred by Provider
Genito-urinary: Deferred by me
Musculoskeletal: No Clubbing, No Cyanosis and No Edema
Skin: Warm and Dry; No Rash or Jaundice
Neuro: AO x 3, No Motor Deficits, Nonfocal/grossly intact and No Sensory Deficits; No Slurred Speech, Facial Droop, Tremors or Sedated
Psych: Calm
Laboratory Results
-
12/02/24 14:56
12/02/24 14:56
Laboratory Results
Total Bilirubin 0.5 mg/dl (0.2-1.3) 12/02/24 14:56
AST 21 U/L (14-36) 12/02/24 14:56
ALT 22 U/L (0-35) 12/02/24 14:56
Alkaline Phosphatase 101 U/L (38-126) 12/02/24 14:56
Troponin I < 0.012 ng/ml 12/02/24 14:56
Data Reviewed
-
Diagnostic Radiology: Report Reviewed by me
Lab Data: Labs Reviewed by me
Impression/Plan
-
Impression/plan:
Admit to MedSurg
#Acute asthma moderate persistent exacerbation
Recent exacerbation 11/18 - 11/21/2024 treated with steroids, nebs, mucolytics and Trelegy
96% RA recent COVID/flu negative on 11/18/2024
-Consult Pulmonary
- DuoNebs 4 times daily and as needed
- Mucinex dm 600 mg twice daily (guaifenesin and dextromethorphan)
- Methylprednisone 40 mg started in ER will continue Decadron 4 mg every 6 hours
-DuoNebs scheduled and Pulmicort
-Patient given Rocephin, doxycycline in ER will hold further antibiotics due to low suspicion for pneumonia given nonproductive cough, afebrile
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
WBC 17.9 <19.7 on 11/19/2024
Just finished prednisone taper yesterday last dose of 10 mg 12/01/2024
Patient is afebrile, heart rate 86, BP 147/44
Monitor for fever, follow CBC
CXR: Mild left basilar subsegmental atelectasis
#DM2�new diagnosis 11/18/2024
Blood sugar 193
HgbA1c 7.8%,
-Accu-Cheks with SSI low coverage
-Was seen by diabetic [employer] did not want insulin for home
-Continue metformin and glipizide that were initiated on 11/21/2024
#GERD
-Continue omeprazole or equivalent
#Hyperlipidemia
-Continue rosuvastatin 40 mg at bedtime
#Depression/anxiety
Continue Lexapro, clonazepam
#Microcytic anemia
Hgb stable 12.3, MCV 76
DVT prophylaxis
Subcu Lovenox
Full code
[2024-12-02] MEDS: SOLU-MEDROL PF 40 MG IV (18:41)
[2024-12-02] MEDS: VIBRAMYCIN 100 MG PO (18:41)
[2024-12-02] MEDS: ROCEPHIN 1000 MG IV (18:42)
--- NOTE | 2024-12-02 20:35 | PTCARENOTE ---
Ptreceived from ED to 417-2. Pt oriented to room and call sharp.
[2024-12-02 20:44] VITALS: BMI 38.7
[2024-12-02 20:45] VITALS: BP 124/77
[2024-12-02 21:04] LABS: Glucose - Point of Care 195 mg/dl (70-99)
[2024-12-02] MEDS: NOVOLOG FLEXPEN-LOW RESISTANCE 1 UNITS SC (21:33)
[2024-12-02] MEDS: KLONOPIN 0.5 MG PO (21:34)
[2024-12-02] MEDS: CRESTOR 40 MG PO (21:36)
[2024-12-02] MEDS: LEXAPRO 20 MG PO (21:36)
[2024-12-02 23:00] VITALS: BP 145/43
[2024-12-02] MEDS: DECADRON 4 MG IV (23:11)
[2024-12-03] MEDS: DUONEB 3 ML INH ×5 (00:07→19:38)
[2024-12-03] MEDS: PULMICORT 0.25 MG INH ×2 (00:07→07:10)
[2024-12-03] MEDS: DECADRON 4 MG IV (06:01)
[2024-12-03 07:20] VITALS: BP 160/62
[2024-12-03 07:23] LABS: Glucose - Point of Care 243 mg/dl (70-99)
[2024-12-03 08:01] LABS: Hematocrit 40.2 % (37.0-47.0); Hemoglobin 12.3 g/dL (12.0-16.0); Mean Corp Hgb Conc. 30.6 g/dL (33.0-37.0); Mean Corpuscular Volume 78.4 fL (81.0-99.0); Nucleated Red Blood Cells % 0 %; Platelet Count 327 10^3/uL (130-400); Red Cell Dist. Width 17.6 % (11.5-14.5)
[2024-12-03 08:33] LABS: ALT (SGPT) 21 U/L (0-35); AST (SGOT) 17 U/L (14-36); Albumin 3.5 g/dl (3.5-5.0); Alkaline Phosphatase 94 U/L (38-126); Blood Urea Nitrogen 20 mg/dl (7-17); Calcium 8.8 mg/dl (8.4-10.2); Carbon Dioxide 24 mmol/L (22-30); Chloride 104 mmol/L (98-107); Estimated Creatinine Clearance 57 ml/min; Glucose 258 mg/dl (70-99); Potassium 4.3 mmol/L (3.5-5.1); Sodium 137 mmol/L (135-145); Total Protein 6.3 g/dl (6.3-8.2); eGFR > 60.00
[2024-12-03] MEDS: GLUCOPHAGE 500 MG PO ×2 (08:43→18:01)
[2024-12-03] MEDS: NORVASC 5 MG PO (08:44)
[2024-12-03] MEDS: PROTONIX 40 MG PO (08:44)
[2024-12-03] MEDS: GLUCOTROL XL (EXTENDED RELEASE) 2.5 MG PO (08:45)
[2024-12-03 09:16] LABS: Hepatitis C Antibody Negative (Negative)
[2024-12-03 09:48] VITALS: BP 147/55; PULSE 91; O2SAT 95
--- NOTE | 2024-12-03 10:02 | CM ---
CM reviewed chart, patient seen in chair, initial assessment completed.
Patient is a 79-year-old female with past medical history of asthma nku-yyyazyi-ywbuxjnbr diabetes, recently admitted to this hospital for an acute asthma exacerbation presenting back to the emergency department due to continued and worsening
shortness of breath, cough and wheezing.
Patient resides with her daughter, son in law, and granddaughter in a multiple story home, patient reports hardly any steps to enter.
Patient is independent with ADLs/IADLs, denies VN/SNF.
PCP David Pearson, Pharmacy [facility], confirms prescription coverage.
Patient denies insecurities at home.
CM will continue to follow for all d/c planning needs.
Plan; home no needs anticipated
[2024-12-03] MEDS: NOVOLOG FLEXPEN-LOW RESISTANCE 2 UNITS SC ×3 (10:30→17:58)
--- NOTE | 2024-12-03 10:41 | CON.PUL ---
Consultation
Consultation Request
Date/Time Consultation Requested: 12/03/2024
Date/Time Consultation Performed: 12/03/2024
Medical History
-
Chief Complaint: Cough, wheezing
History of Present Illness:
Patient is a very pleasant 79-year-old female with known history of moderate persistent asthma who was recently discharged from the hospital on 11/21. Patient was admitted for asthma exacerbation and was discharged on tapering dose of prednisone.
Patient reports that she did well postdischarge, was continuing to use her Trelegy inhaler along with prednisone taper. As the dose of prednisone started to decrease, patient started noticing increased symptoms of cough, wheezing and shortness of
breath. This prompted revisit to the emergency room and she was admitted to the hospitalist service for worsening asthma exacerbation. Pulmonary consultation was requested for further input.
Past Medical History
Past Medical History: None (Asthma. Hyperlipidemia. Depression. Anxiety. GERD. Obesity.)
Social History
Tobacco: Non-smoker
Alcohol: None
Drug: None
Occupational Exposures: No known asbestos exposure
Environmental Exposures: No known tuberculosis exposure
Family History
Family History: Reviewed & Not Pertinent
Allergies / Home Medications
Allergies
Allergy/AdvReac Type Severity Reaction Status Date / Time
Penicillins Allergy Unknown Unknown Verified 12/02/24 14:49
Sulfa (Sulfonamide Allergy Unknown Unknown Verified 12/02/24 14:49
Antibiotics)
Home Medications
�Medication �Instructions �Recorded �Confirmed �Last Taken �Type
clonazepam 0.5 mg tablet 0.5 mg PO HS Mental Health/Anxiety 11/18/24 12/02/24 12/01/24 History
escitalopram oxalate 20 mg tablet 20 mg PO HS Depression 11/18/24 12/02/24 12/01/24 History
(Lexapro)
fluticasone fur. 100 mcg-umeclid 1 inh inhalation R QPM 11/18/24 12/02/24 12/01/24 History
62.5 mcg-vilant 25 mcg Lung/Breathing Issues
inhalat.powder (Trelegy Ellipta)
levalbuterol HCl 0.63 mg/3 mL 0.63 mg inhalation R Q8HPRN PRN sob 11/18/24 12/02/24 Unknown History
solution for nebulization
omeprazole 40 mg capsule,delayed 40 mg PO DAILY Gastrointestinal 11/18/24 12/02/24 12/02/24 History
release Issue
rosuvastatin 40 mg tablet (Crestor) 40 mg PO DAILY High Cholesterol 11/18/24 12/02/24 12/02/24 History
amlodipine 5 mg tablet 5 mg PO DAILY Blood Pressure 12/02/24 12/02/24 12/02/24 History
benzonatate 100 mg capsule 100 mg PO Q4H PRN cough 12/02/24 12/02/24 12/02/24 History
glipizide 2.5 mg tablet, extended 2.5 mg PO DAILY Diabetes 12/02/24 12/02/24 12/02/24 History
release 24 hr
metformin 500 mg tablet 500 mg PO BID@0800,1700 Diabetes 12/02/24 12/02/24 12/02/24 History
Review of Systems
-
Hematologic/Lymphatic: Other (All 14 systems reviewed and negative except as stated above in the history of present illness.)
Vitals / Labs / Diagnostic Testing
Vital Signs
Temp Pulse Resp BP Pulse Ox
97.4 F 96 20 160/62 96
12/03/24 07:20 12/03/24 07:20 12/03/24 07:20 12/03/24 07:20 12/03/24 07:20
Lab Data
12/03/24 07:20
12/03/24 07:20
Diagnostic Testing:
Physical Exam
-
HEENT: Normocephalic
Cardiovascular: S1/S2
Respiratory: Wheeze (Mild bilateral end expiratory wheezing)
GI: Soft and Non Distended
Neurology: Awake and Alert
Skin: Warm
General: Comfortable
Assessment
-
#1. Acute asthma exacerbation, baseline moderate persistent asthma
- Continue DuoNeb 4 times daily scheduled, change budesonide to 0.5 mg nebulized twice daily
- Discontinue dexamethasone, initiate Solu-Medrol 40 mg IV twice daily
- Mild left lower lobe atelectasis noted, monitor off antibiotics for now. Work of breathing is normal, no suprasternal retraction or accessory muscle use noted.
- Considering recurrence of symptoms on tapering of prednisone, will plan a prolonged gradual taper at discharge
- Outpatient follow-up with [facility] pulmonary clinic
- Supplemental O2 as needed
- Resume Trelegy at discharge
- Considering persistent symptoms despite maximum inhaler therapy, initiate Singulair 10 mg nightly
- Will review for candidacy for biologic therapy as outpatient
- Eosinophil count is normal however patient has been on steroids. Will need additional workup including IgE level and RAST panel as outpatient
#2. Chronic allergic rhinitis.
- Patient uses ipratropium nasal spray at home
- Recommend initiating intranasal steroids, fluticasone post discharge
Other medical diagnoses:
- DM
- GERD
- HLD
- Anemia
DVT prophylaxis subcu Lovenox.
Total time spent on this consultation/encounter __65__ minutes which includes review of history, physical exam, medications, laboratory data, personal review of imaging, extensive review of outpatient records, discussion with care team and
respiratory therapy.
Data:
CXR 11/2024: Minimal left lower lobe atelectasis. Otherwise unremarkable
[2024-12-03 11:46] LABS: Glucose - Point of Care 220 mg/dl (70-99)
--- NOTE | 2024-12-03 12:43 | W.PN.HOSP.TC ---
Today's Communication/Plan
-
Maintained on steroids/nebulizer therapy
Incentive spirometry added
Monitor off of antibiotic
Await further pulmonology input
Assessment / Plan
Assessment / Plan
1. Asthma flareup
-Recent exacerbation 11/18 - 11/21/2024 treated with steroids, nebs, mucolytics and Trelegy
-Patient remains on room air
-Chest x-ray clear, no antibiotics started
-Has been started on steroids/nebulizer therapy
-Pulmonology consultation requested for further
2. Chronic cough
-Ongoing dry cough for more than 4 weeks at this point
-Patient was planned to follow-up with pulmonology outpatient basis after discharge from initial stay earlier in the month
-No signs suggestive of postnasal drip
-Already on omeprazole
-Not on SAMEER inhibitors
-Possibly secondary to uncontrolled asthma only? Not sure if patient had PFT in the past. Await further pulmonolgy input.
3. Leukocytosis
-Likely reactive versus steroid use related
-No clear signs of ongoing infection, monitor off antibiotic
4. DM2
�new diagnosis 11/18/2024
-HgbA1c 7.8%,
-Accu-Cheks with SSI low coverage
-Was seen by diabetic [employer] did not want insulin for home
-Continue metformin and glipizide that were initiated on 11/21/2024
GERD
Hyperlipidemia
Depression/anxiety
Microcytic anemia
DVT prophylaxis -Subcu Lovenox
Full code
Anticipated Discharge: 24 - 48 hours
Subjective/Interval History
-
Date of Service: December 03, 2024
Shortness of breath is improved
Wheezing is improved
Not on oxygen
Continues to have dry cough
Objective Data
-
Labs:
Laboratory Results
12/03/24
07:20
WBC 15.4 H
Hgb 12.3
Hct 40.2
Plt Count 327
Sodium 137
Potassium 4.3
Chloride 104
Carbon Dioxide 24
BUN 20 H
Creatinine 0.8
Glucose 258 H
Calcium 8.8
Total Bilirubin 0.2
AST 17
ALT 21
Alkaline Phosphatase 94
Vital Signs:
Vital Signs
Temp Pulse Resp BP Pulse Ox
97.4 F 92 16 160/62 96
12/03/24 07:20 12/03/24 11:23 12/03/24 11:23 12/03/24 07:20 12/03/24 11:23
Review of Systems
-
Respiratory: Reports Cough; Denies Trouble Breathing or Wheezing
Cardiac: Reports No Symptoms
Abdomen/GI: Reports No Symptoms
Physical Exam
-
General: Negative Respiratory Distress
HEENT: Negative Oxygen
Respiratory: Wheezes
GI: Soft, Nontender and Nondistended
Musculoskeletal: No Clubbing, No Cyanosis and No Edema
Neuro: Awake, Alert and Oriented
[2024-12-03] MEDS: DECADRON IV (13:25)
[2024-12-03 15:28] VITALS: BP 136/53
[2024-12-03 16:44] LABS: Glucose - Point of Care 232 mg/dl (70-99)
[2024-12-03] MEDS: SOLU-MEDROL PF 40 MG IV (18:01)
[2024-12-03] MEDS: SINGULAIR 10 MG PO (18:01)
[2024-12-03] MEDS: LOVENOX 40 MG SC (18:03)
[2024-12-03] MEDS: PULMICORT 0.5 MG INH (19:38)
[2024-12-03 21:04] LABS: Glucose - Point of Care 190 mg/dl (70-99)
[2024-12-03] MEDS: CRESTOR 40 MG PO (21:06)
[2024-12-03] MEDS: KLONOPIN 0.5 MG PO (21:06)
[2024-12-03] MEDS: LEXAPRO 20 MG PO (21:06)
[2024-12-03 23:25] VITALS: BP 148/93
[2024-12-04] MEDS: ROBITUSSIN DM 10 ML PO ×3 (00:15→09:59)
[2024-12-04] MEDS: TUMS CHEWABLE TABLET 400 MG PO (00:15)
[2024-12-04] MEDS: SOLU-MEDROL PF 40 MG IV ×2 (05:09→17:37)
[2024-12-04 07:56] LABS: Glucose - Point of Care 153 mg/dl (70-99)
[2024-12-04] MEDS: DUONEB 3 ML INH ×4 (07:58→20:03)
[2024-12-04] MEDS: PULMICORT 0.5 MG INH ×2 (07:59→20:02)
[2024-12-04 08:00] LABS: Hematocrit 37.8 % (37.0-47.0); Hemoglobin 12.4 g/dL (12.0-16.0); Mean Corp Hgb Conc. 32.8 g/dL (33.0-37.0); Mean Corpuscular Volume 75.1 fL (81.0-99.0); Platelet Count 323 10^3/uL (130-400); Red Cell Dist. Width 17.4 % (11.5-14.5)
[2024-12-04 08:21] VITALS: BP 166/59
[2024-12-04 08:24] LABS: Nucleated Red Blood Cells % 0 %
[2024-12-04] MEDS: NOVOLOG FLEXPEN-LOW RESISTANCE 1 UNITS SC ×2 (08:35→17:39)
[2024-12-04] MEDS: GLUCOPHAGE 500 MG PO ×2 (08:36→17:36)
[2024-12-04 08:37] LABS: ALT (SGPT) 22 U/L (0-35); AST (SGOT) 18 U/L (14-36); Albumin 3.5 g/dl (3.5-5.0); Alkaline Phosphatase 96 U/L (38-126); Blood Urea Nitrogen 24 mg/dl (7-17); Calcium 9.6 mg/dl (8.4-10.2); Carbon Dioxide 24 mmol/L (22-30); Chloride 102 mmol/L (98-107); Estimated Creatinine Clearance 65 ml/min; Glucose 161 mg/dl (70-99); Potassium 4.2 mmol/L (3.5-5.1); Sodium 136 mmol/L (135-145); Total Protein 6.3 g/dl (6.3-8.2); eGFR > 60.00
[2024-12-04] MEDS: NORVASC 5 MG PO (08:37)
[2024-12-04] MEDS: GLUCOTROL XL (EXTENDED RELEASE) 2.5 MG PO (08:37)
[2024-12-04] MEDS: PROTONIX 40 MG PO (08:37)
[2024-12-04 12:23] LABS: Glucose - Point of Care 290 mg/dl (70-99)
[2024-12-04] MEDS: NOVOLOG FLEXPEN-LOW RESISTANCE 3 UNITS SC (12:23)
[2024-12-04 13:05] VITALS: BP 143/50; PULSE 91; O2SAT 98
--- NOTE | 2024-12-04 14:58 | W.PN.HOSP.TC ---
Today's Communication/Plan
-
Continue steroids/nebulizer therapy
possible d/c in 24-48hrs based on clinical improvement
Assessment / Plan
Assessment / Plan
1. Asthma flareup
-Recent exacerbation 11/18 - 11/21/2024 treated with steroids, nebs, mucolytics and Trelegy
-Patient remains on room air
-Chest x-ray clear, no antibiotics started
-Has been started on steroids/nebulizer therapy
-Pulmonology consultation requested for further
2. Chronic cough
-Ongoing dry cough for more than 4 weeks at this point
-Patient was planned to follow-up with pulmonology outpatient basis after discharge from initial stay earlier in the month
-No signs suggestive of postnasal drip
-Already on omeprazole
-Not on SAMEER inhibitors
-Possibly secondary to uncontrolled asthma only? Not sure if patient had PFT in the past. Await further pulmonolgy input.
3. Leukocytosis
-Likely reactive versus steroid use related
-No clear signs of ongoing infection, monitor off antibiotic
4. DM2
�new diagnosis 11/18/2024
-HgbA1c 7.8%,
-Accu-Cheks with SSI low coverage
-Was seen by diabetic [employer] did not want insulin for home
-Continue metformin and glipizide that were initiated on 11/21/2024
GERD
Hyperlipidemia
Depression/anxiety
Microcytic anemia
DVT prophylaxis -Subcu Lovenox
Full code
Anticipated Discharge: 24 - 48 hours
Subjective/Interval History
-
Date of Service: December 04, 2024
Denies of any shortness breath
continues to have cough
afebrile
Objective Data
-
Labs:
Laboratory Results
12/04/24
07:27
WBC 24.5 H
Hgb 12.4
Hct 37.8
Plt Count 323
Sodium 136
Potassium 4.2
Chloride 102
Carbon Dioxide 24
BUN 24 H
Creatinine 0.7
Glucose 161 H
Calcium 9.6
Total Bilirubin 0.3
AST 18
ALT 22
Alkaline Phosphatase 96
Vital Signs:
Vital Signs
Temp Pulse Resp BP Pulse Ox
97.6 F 93 16 166/59 98
12/04/24 08:21 12/04/24 11:51 12/04/24 11:51 12/04/24 08:21 12/04/24 11:51
I&O
12/03/24 12/04/24 12/05/24
06:59 06:59 06:59
Intake Total 720 / 720
Balance 720 / 720
Review of Systems
-
Respiratory: Reports Cough; Denies Trouble Breathing
Cardiac: Reports No Symptoms
Abdomen/GI: Reports No Symptoms
Physical Exam
-
General: Negative Respiratory Distress
HEENT: Negative Oxygen
Respiratory: Wheezes
Neuro: Awake, Alert and Oriented
[2024-12-04 15:31] VITALS: BP 121/51
--- NOTE | 2024-12-04 15:56 | W.PN.PUL3 ---
Today's Communication / Plan
-
- Continue current therapy, anticipate transition to p.o. prednisone on 12/05
Assessment
-
Patient is a very pleasant 79-year-old female with known history of moderate persistent asthma who was recently discharged from the hospital on 11/21. Patient was admitted for asthma exacerbation and was discharged on tapering dose of prednisone.
Patient reports that she did well postdischarge, was continuing to use her Trelegy inhaler along with prednisone taper. As the dose of prednisone started to decrease, patient started noticing increased symptoms of cough, wheezing and shortness of
breath. This prompted revisit to the emergency room and she was admitted to the hospitalist service for worsening asthma exacerbation. Pulmonary consultation was requested for further input.
#1. Acute asthma exacerbation, baseline moderate persistent asthma
- Gradually improving symptoms.
- Continue DuoNeb 4 times daily scheduled, budesonide to 0.5 mg nebulized twice daily
- Discontinued dexamethasone, continue Solu-Medrol 40 mg IV twice daily. Anticipate transition to prednisone over next 24 to 48 hours.
- Mild left lower lobe atelectasis noted, monitor off antibiotics for now. Work of breathing is normal, no suprasternal retraction or accessory muscle use noted.
- Considering recurrence of symptoms on tapering of prednisone, will plan a prolonged gradual taper at discharge
- Outpatient follow-up with [facility] pulmonary clinic
- Supplemental O2 as needed
- Resume Trelegy at discharge
- Considering persistent symptoms despite maximum inhaler therapy, initiated Singulair 10 mg nightly
- Will review for candidacy for biologic therapy as outpatient
- Eosinophil count is normal however patient has been on steroids. Will need additional workup including IgE level and RAST panel as outpatient
#2. Chronic allergic rhinitis.
- Patient uses ipratropium nasal spray at home
- Recommend initiating intranasal steroids, fluticasone post discharge
Other medical diagnoses:
- DM
- GERD
- HLD
- Anemia
DVT prophylaxis subcu Lovenox.
Total time spent on this consultation/encounter __38__ minutes which includes review of history, physical exam, medications, laboratory data, personal review of imaging, extensive review of outpatient records, discussion with care team and
respiratory therapy.
Data:
CXR 11/2024: Minimal left lower lobe atelectasis. Otherwise unremarkable
Subjective Data
-
Date of Service:
Date of Service: December 04, 2024
Subjective:
Patient reports gradual improvement in her symptoms.
Review of Systems
Genitourinary: Other (All 14 systems reviewed and negative except as stated above in the history of present illness.)
Objective Data
Data Reviewed
Vital Signs / I&O / Oxygen:
Vital Signs
Temp Pulse Resp BP Pulse Ox
97.6 F 102 16 166/59 98
12/04/24 08:21 12/04/24 15:23 12/04/24 15:23 12/04/24 08:21 12/04/24 15:23
Intake and Output
12/03/24 12/04/24 12/05/24
06:59 06:59 06:59
Intake Total 720 / 720
Balance 720 / 720
SaO2 98
Nasal Cannula flow liters per 2
minute
Physical Exam
General: Comfortable
HEENT: Normocephalic
Cardiovascular: S1-S2
Respiratory: Wheeze (Improving wheezing)
GI: Soft and Non Distended
Neurology: Awake and Alert
Skin: Warm
Labs/Micro/Reports
Lab Data
12/04/24 07:27
12/04/24 07:27
[2024-12-04 17:34] LABS: Glucose - Point of Care 195 mg/dl (70-99)
[2024-12-04] MEDS: LOVENOX 40 MG SC (17:36)
[2024-12-04] MEDS: SINGULAIR 10 MG PO (17:36)
[2024-12-04] MEDS: LEXAPRO 20 MG PO (21:59)
[2024-12-04] MEDS: KLONOPIN 0.5 MG PO (21:59)
[2024-12-04] MEDS: CRESTOR 40 MG PO (21:59)
[2024-12-04 22:10] LABS: Glucose - Point of Care 266 mg/dl (70-99)
[2024-12-04 23:27] VITALS: BP 172/50
[2024-12-05] MEDS: SOLU-MEDROL PF 40 MG IV (05:25)
[2024-12-05 07:00] VITALS: BP 140/70
[2024-12-05 07:48] LABS: Hematocrit 37.5 % (37.0-47.0); Hemoglobin 12.2 g/dL (12.0-16.0); Mean Corp Hgb Conc. 32.5 g/dL (33.0-37.0); Mean Corpuscular Volume 75.3 fL (81.0-99.0); Nucleated Red Blood Cells % 0 %; Platelet Count 323 10^3/uL (130-400); Red Cell Dist. Width 18.0 % (11.5-14.5)
--- NOTE | 2024-12-05 07:49 | W.PN.PUL3 ---
Today's Communication / Plan
-
- Resume Trelegy 200 at discharge
- Start Montelukast 10 mg nightly and Albuterol MDI/Nebz PRN
- Prednisone 60 mg, drop by 10 mg every 3 days until off
- Out patient follow up with [facility].
Assessment
-
Patient is a very pleasant 79-year-old female with known history of moderate persistent asthma who was recently discharged from the hospital on 11/21. Patient was admitted for asthma exacerbation and was discharged on tapering dose of prednisone.
Patient reports that she did well postdischarge, was continuing to use her Trelegy inhaler along with prednisone taper. As the dose of prednisone started to decrease, patient started noticing increased symptoms of cough, wheezing and shortness of
breath. This prompted revisit to the emergency room and she was admitted to the hospitalist service for worsening asthma exacerbation. Pulmonary consultation was requested for further input.
#1. Acute asthma exacerbation, baseline moderate persistent asthma
- Symptoms continue to improve
- Continue DuoNeb 4 times daily scheduled, budesonide to 0.5 mg nebulized twice daily, will resume at home
- Transition to prednisone 60 mg daily, plan to taper over the coming days.
- Mild left lower lobe atelectasis noted, monitor off antibiotics for now. Work of breathing is normal, no suprasternal retraction or accessory muscle use noted.
- Considering recurrence of symptoms on tapering of prednisone, will plan a prolonged gradual taper at discharge
- Outpatient follow-up with [facility] pulmonary clinic
- Supplemental O2 as needed
- Resume Trelegy at discharge
- Considering persistent symptoms despite maximum inhaler therapy, initiated Singulair 10 mg nightly
- Will review for candidacy for biologic therapy as outpatient
- Eosinophil count is normal however patient has been on steroids. Will need additional workup including IgE level and RAST panel as outpatient
#2. Chronic allergic rhinitis.
- Patient uses ipratropium nasal spray at home
- Recommend initiating intranasal steroids, fluticasone post discharge
Other medical diagnoses:
- DM
- GERD
- HLD
- Anemia
DVT prophylaxis subcu Lovenox.
Total time spent on this consultation/encounter __36__ minutes which includes review of history, physical exam, medications, laboratory data, personal review of imaging, extensive review of outpatient records, discussion with care team and
respiratory therapy.
Data:
CXR 11/2024: Minimal left lower lobe atelectasis. Otherwise unremarkable
Subjective Data
-
Date of Service:
Date of Service: December 05, 2024
Subjective:
Patient comfortably sitting in bed in no acute distress. Overall reports feeling better
Review of Systems
Genitourinary: Other (All 14 systems reviewed and negative except as stated above in the history of present illness.)
Objective Data
Data Reviewed
Vital Signs / I&O / Oxygen:
Vital Signs
Temp Pulse Resp BP Pulse Ox
98.0 F 98 18 172/50 96
12/04/24 23:27 12/04/24 23:27 12/04/24 23:27 12/04/24 23:27 12/04/24 23:27
Intake and Output
12/04/24 12/05/24 12/06/24
06:59 06:59 06:59
Intake Total 720 / 720 1040 / 1040
Balance 720 / 720 1040 / 1040
SaO2 96
Nasal Cannula flow liters per 2
minute
Physical Exam
General: Comfortable
HEENT: Normocephalic
Cardiovascular: S1-S2
Respiratory: Wheeze (Minimal faint end expiratory wheezing. Overall significantly improved over the last 48 hours)
GI: Soft and Non Distended
Neurology: Awake and Alert
Skin: Warm
Labs/Micro/Reports
Lab Data
12/05/24 06:40
[2024-12-05] MEDS: DUONEB 3 ML INH ×3 (07:50→15:40)
[2024-12-05] MEDS: PULMICORT 0.5 MG INH (07:51)
[2024-12-05 07:56] LABS: Glucose - Point of Care 177 mg/dl (70-99)
[2024-12-05 08:26] LABS: ALT (SGPT) 21 U/L (0-35); AST (SGOT) 18 U/L (14-36); Albumin 3.4 g/dl (3.5-5.0); Alkaline Phosphatase 85 U/L (38-126); Blood Urea Nitrogen 23 mg/dl (7-17); Calcium 9.1 mg/dl (8.4-10.2); Carbon Dioxide 25 mmol/L (22-30); Chloride 101 mmol/L (98-107); Estimated Creatinine Clearance 65 ml/min; Glucose 165 mg/dl (70-99); Potassium 4.1 mmol/L (3.5-5.1); Sodium 136 mmol/L (135-145); Total Protein 6.0 g/dl (6.3-8.2); eGFR > 60.00
[2024-12-05] MEDS: NOVOLOG FLEXPEN-LOW RESISTANCE 1 UNITS SC (08:26)
[2024-12-05] MEDS: NORVASC 5 MG PO (08:27)
[2024-12-05] MEDS: PROTONIX 40 MG PO (08:27)
[2024-12-05] MEDS: GLUCOTROL XL (EXTENDED RELEASE) 2.5 MG PO (08:27)
[2024-12-05] MEDS: GLUCOPHAGE 500 MG PO (08:27)
[2024-12-05 11:00] VITALS: BP 144/62
[2024-12-05] MEDS: NOVOLOG FLEXPEN-LOW RESISTANCE 2 UNITS SC (12:32)
[2024-12-05 12:33] LABS: Glucose - Point of Care 241 mg/dl (70-99)
--- NOTE | 2024-12-05 12:40 | W.DCSUMMARY ---
Discharge Summary
Discharge Data
Date of Admission: 12/02/24
Date of Discharge: 12/05/24
-
Pending Results: No
Hospital Course
Discharging Physician : Dr Contreras Velasquez
Disposition : To home
Primary care physician : Dr David Pearson
Principal Discharge diagnosis :
Asthma flareup
Subacute cough
Chronic Discharge diagnosis :
Type 2 diabetes
Gastroesophageal reflux disease
Hyperlipidemia
Depression/anxiety
Microcytic anemia
Obesity
Physical examination:
GEN: obese
Chest: Clear to auscultation, not on o2
Heart: N s1/s2, RR, no murmur
Abd: N BS, soft, nontender, nondistended
Neuro: No motor or sensory deficits
Ext: No edema
Hospital Course :
Patient is a 79-year-old female with limited past medical history came to ER with recurrence of shortness of breath and subacute cough. Patient was just hospitalized earlier in the month for asthma flareup and after treatment was discharged home.
Patient was planned to follow-up with pulmonology in office although with symptoms recurrence came to ER. In ER chest x-ray was done did not show any new infiltrates to suggest any pneumonia. On exam patient was felt to having recurrence of asthma
flareup. Patient was started on steroids and nebulizer therapy. Pulmonology was involved in care who felt patient subacute cough is likely related to asthma as well. No other secondary explanation for patient cough. After improvement patient was
discharged home with nebulizer therapy and tapering course of oral prednisone. Patient is planned to follow-up with pulmonology in the office. Patient will likely benefit with PFT updated to check for any chronicity with asthma.
Important imaging findings :
None
Procedure findings :
None
Discharge Plan
-
Patient Disposition: Home (Routine Discharge)
Discharge Diagnosis/Procedures: Asthma exacerbation
Condition: Fair
Diet: Diabetic, Carb Controlled
Activity: As tolerated
Driving Restrictions: As prior to admission
Bathing Restrictions: OK to Shower
Referrals:
David Pearson MD [Family Provider, Internal Medicine] - in one week
Ramos Dennis MD [Active, Pulmonary Medicine] - in one to two weeks
Prescriptions:
New
albuterol sulfate 1.25 mg/3 mL solution for nebulization
1.25 mg inhalation Q8H PRN (Reason: shortness of breath or wheezing) Qty: 90 1RF
albuterol sulfate [Ventolin HFA] 90 mcg/actuation HFA aerosol inhaler
2 puff inhalation Q6H PRN (Reason: shortness of breath or wheezing) Qty: 8.5 2RF
montelukast [Singulair] 10 mg tablet
10 mg PO HS Qty: 30 2RF
prednisone 10 mg Tablet
See Rx Instructions .ROUTE .COMPLEX Qty: 63 0RF
Rx Instructions:
Take By Mouth:
60 mg daily x3 days, 50 mg daily x3 days,
40 mg daily x3 days, 30 mg daily x3 days,
20 mg daily x3 days, 10 mg daily x3 days
Continued
clonazepam 0.5 mg Tablet
0.5 mg PO HS
omeprazole 40 mg Capsule,Delayed Release(Dr/Ec)
40 mg PO DAILY
escitalopram oxalate [Lexapro] 20 mg Tablet
20 mg PO HS
rosuvastatin [Crestor] 40 mg Tablet
40 mg PO DAILY
Trelegy Ellipta 100-62.5-25 mcg Blister With Device
1 inh INHALATION R QPM
metformin 500 mg tablet
500 mg PO BID@0800,1700
amlodipine 5 mg tablet
5 mg PO DAILY
glipizide 2.5 mg tablet extended release 24hr
2.5 mg PO DAILY
benzonatate 100 mg Capsule
100 mg PO Q4H PRN (Reason: cough)
Discontinued
levalbuterol HCl 0.63 mg/3 mL Solution For Nebulization
0.63 mg INHALATION R Q8HPRN PRN (Reason: sob)
Discharge Orders:
Discharge Patient (As Directed); Ordered 12/05/24
Ordered By: Contreras Velasquez
Discharge Date and Time
Print Language: GU[place]
[2024-12-05 15:00] VITALS: BP 174/81
== END 2024-12-05 16:48 | disposition home or self-care (01) | DRG 203 ==
LOC: 4 WEST ACU 18:57
PROVIDERS: Clinical Nurse Specialist Family Health; Emergency Medicine; ADMITTING PHYSICIAN Internal Medicine; ATTENDING PHYSICIAN Hospitalist; EMERGENCY PHYSICIAN Student in an Organized Health Care Education/Training Program; FAMILY PHYSICIAN Internal Medicine; OTHER PHYSICIAN Internal Medicine
DX: J45.41 Moderate persistent asthma with (acute) exacerbation (principal); K21.9 Gastro-esophageal reflux disease without esophagitis; E11.9 Type 2 diabetes mellitus without complications; F32.A Depression, unspecified; F41.9 Anxiety disorder, unspecified; D50.9 Iron deficiency anemia, unspecified; E66.9 Obesity, unspecified; Z68.38 Body mass index [BMI] 38.0-38.9, adult; Z88.2 Allergy status to sulfonamides; Z88.0 Allergy status to penicillin; Z79.899 Other long term (current) drug therapy; Z79.84 Long term (current) use of oral hypoglycemic drugs; Z79.52 Long term (current) use of systemic steroids; E78.00 Pure hypercholesterolemia, unspecified; I10 Essential (primary) hypertension; T38.0X5A Adverse effect of glucocorticoids and synthetic analogues, initial encounter; Z92.241 Personal history of systemic steroid therapy
CPT/HCPCS: 71046; 80053; 82962; 83880; 84484; 85025; 86803; 93005; 94640; 97116; 97162; 99285

== ENCOUNTER → 2025-02-05 12:18 | Outpatient (REF) | payer OTHER, SELFPAY | LOC: RAD 12:18 | PROVIDERS: ATTENDING PHYSICIAN Internal Medicine Critical Care Medicine; FAMILY PHYSICIAN Internal Medicine | DX: J41.8 Mixed simple and mucopurulent chronic bronchitis (principal) | CPT/HCPCS: 71046 ==